=== PATIENT | male | born 1940 | race Caucasian/White ===

== ENCOUNTER → 2020-04-06 09:38 | Outpatient (BNVA) | payer MEDICARE, SELFPAY | PROVIDERS: Family Provider Physician Assistant Medical; PCP Physician Assistant Medical; Visit Provider Urology | DX: R97.20 Elevated prostate specific antigen [PSA] (principal) | CPT/HCPCS: 84153 ==

== ENCOUNTER → 2020-04-14 09:20 | Outpatient (BNVA) | payer MEDICARE, SELFPAY | PROVIDERS: Family Provider Physician Assistant Medical; PCP Physician Assistant Medical; Visit Provider Urology | DX: R97.20 Elevated prostate specific antigen [PSA] (principal) | CPT/HCPCS: 81001 ==

== ENCOUNTER → 2020-09-21 14:05 | Outpatient (BNVA) | payer MEDICARE, SELFPAY | PROVIDERS: Family Provider Physician Assistant Medical; PCP Physician Assistant Medical; Visit Provider Urology | DX: R97.20 Elevated prostate specific antigen [PSA] (principal) | CPT/HCPCS: 81003 ==

== ENCOUNTER → 2021-03-15 11:26 | Outpatient (BNVA) | payer MEDICARE, SELFPAY | PROVIDERS: Family Provider Physician Assistant Medical; PCP Physician Assistant Medical; Visit Provider Urology | DX: R97.20 Elevated prostate specific antigen [PSA] (principal) | CPT/HCPCS: 84153 ==

== ENCOUNTER → 2021-03-24 09:27 | Outpatient (BNVA) | payer MEDICARE, SELFPAY | PROVIDERS: Family Provider Physician Assistant Medical; PCP Physician Assistant Medical; Visit Provider Urology | DX: R97.20 Elevated prostate specific antigen [PSA] (principal) | CPT/HCPCS: 81003 ==

== ENCOUNTER 2021-09-19 08:29 | Outpatient (CLI) | payer MEDICARE, SELFPAY | END 2021-09-19 08:30 | disposition home or self-care (01) | LOC: LAB 08:34 | PROVIDERS: PCP Family Medicine; Visit Provider Urology | DX: R97.20 Elevated prostate specific antigen [PSA] (principal) | CPT/HCPCS: 84153 ==

== ENCOUNTER → 2021-09-26 09:02 | Outpatient (BNVA) | payer MEDICARE, SELFPAY | PROVIDERS: PCP Family Medicine; Visit Provider Urology | DX: R97.20 Elevated prostate specific antigen [PSA] (principal) | CPT/HCPCS: 81003 ==

== ENCOUNTER 2021-12-12 09:12 | Outpatient (CLI) | payer MEDICARE, SELFPAY ==
--- NOTE | 2021-12-12 09:30 | USCV_ITS ---
Dm Ny Age: 81 Gender: M : 1940 Exam Date: 12/12/2021 09:37 Ordering Phys: Steffen Alcantar MD (Andy) ([email or web address]) Technologist: José Miguel Huffman Exam Location: [facility] [place] Indication: SCREENING HISTORY: Diameter (cm) AP x Transverse x Length Velocity (cm/s) Waveform Prox Aorta: 1.75 x 2.03 x 76.30 Mid Aorta: 1.14 x 1.47 x 72.00 Distal Aorta: 1.21 x 1.31 x 78.40 Right Iliac Prox: 0.68 x 0.88 x 100.00 Left Iliac Prox: 0.70 x 0.73 x 162.20 Stent Prox Landing x x Aneurysmal Sac Max x x Lt Lat Sac Dim Rt Lat Sac Dim Stent Dist Landing x x Right Iliac Stent x x Left Iliac Stent x x Right Renal Art Left Renal Art FINDINGS: Comparison: none available. No evidence of abdominal aortic aneurysm. Ectatic abdominal aorta with evidence of atherosclerotic plaque noted. There is evidence of atherosclerotic plaque no significan stenosis in the right common iliac artery. There is evidence of atherosclerotic plaque no significan stenosis in the left common iliac artery. CONCLUSIONS Ectatic abdominal aorta with evidence of atherosclerotic plaque noted. No evidence of abdominal aortic aneurysm. Dr. Inna David DO (Electronically Signed) Final Date: 12 December 2021 11:36 S
== END 2021-12-12 09:13 | disposition home or self-care (01) ==
PROVIDERS: PCP Family Medicine; Visit Provider Thoracic Surgery (Cardiothoracic Vascular Surgery)
DX: Z13.6 Encounter for screening for cardiovascular disorders (principal); I77.811 Abdominal aortic ectasia
CPT/HCPCS: 76706

== ENCOUNTER → 2022-01-06 09:35 | Outpatient (BNVA) | payer MEDICARE, SELFPAY | PROVIDERS: PCP Family Medicine; Visit Provider Thoracic Surgery (Cardiothoracic Vascular Surgery) | DX: I73.9 Peripheral vascular disease, unspecified (principal) | CPT/HCPCS: 99212 ==

== ENCOUNTER → 2022-03-30 09:08 | Outpatient (BNVA) | payer MEDICARE, SELFPAY | PROVIDERS: PCP Family Medicine; Visit Provider Urology | DX: R97.20 Elevated prostate specific antigen [PSA] (principal) | CPT/HCPCS: 81003; 99213 ==

== ENCOUNTER → 2022-09-29 08:48 | Outpatient (BNVA) | payer MEDICARE, SELFPAY | PROVIDERS: PCP Family Medicine; Visit Provider Urology | DX: R97.20 Elevated prostate specific antigen [PSA] (principal) | CPT/HCPCS: 84153 ==

== ENCOUNTER → 2022-10-12 10:30 | Outpatient (BNVA) | payer MEDICARE, SELFPAY | PROVIDERS: PCP Family Medicine; Visit Provider Urology | DX: R97.20 Elevated prostate specific antigen [PSA] (principal) | CPT/HCPCS: 81003; 99213 ==

== ENCOUNTER → 2022-12-28 14:11 | Outpatient (BNVA) | payer MEDICARE, SELFPAY | PROVIDERS: PCP Family Medicine; Visit Provider Surgery | DX: R22.42 Localized swelling, mass and lump, left lower limb (principal); R19.09 Other intra-abdominal and pelvic swelling, mass and lump | CPT/HCPCS: 99203 ==

== ENCOUNTER 2023-01-26 08:53 | Outpatient (CLI) | payer MEDICARE, SELFPAY ==
--- NOTE | 2023-01-26 10:15 | US_ITS ---
WS: [id number] ULTRASOUND-GUIDED LEFT INGUINAL MASS BIOPSY INDICATION: LEFT inguinal mass TECHNIQUE: The procedure including risks, benefits, and complications were discussed with the patient who agreed to proceed. Using sterile technique, patient was prepped and draped in usual sterile [facility] ion. Timeout was performed. After 1% lidocaine, using ultrasound guidance, multiple core samples were obtained with a 14-gauge biopsy device. In addition approximately 10 cc of bloody fluid was aspirate d. No immediate complications. US/US biopsy [id number] IMPRESSION: Uncomplicated ultrasound-guided LEFT inguinal mass biopsy
[2023-01-30 07:54] LABS: Lymphoma Profile (BBPL) See Report
== END 2023-01-26 08:54 | disposition home or self-care (01) ==
LOC: RAD 08:57
PROVIDERS: PCP Family Medicine; Visit Provider Surgery
DX: R19.09 Other intra-abdominal and pelvic swelling, mass and lump (principal); C96.9 Malignant neoplasm of lymphoid, hematopoietic and related tissue, unspecified
CPT/HCPCS: 76942; 88112; 88184; 88185; 88305; 88342

== ENCOUNTER → 2023-02-06 13:55 | Outpatient (BNVA) | payer MEDICARE, SELFPAY | PROVIDERS: PCP Family Medicine; Visit Provider Surgery | DX: R22.42 Localized swelling, mass and lump, left lower limb (principal); C43.9 Malignant melanoma of skin, unspecified; K40.90 Unilateral inguinal hernia, without obstruction or gangrene, not specified as recurrent | CPT/HCPCS: 99213 ==

== ENCOUNTER 2023-02-14 10:03 | Oncology outpatient (recurring) (ONCR) | payer MEDICARE, SELFPAY ==
[2023-02-14 11:54] LABS: Basophils % 0.5 %; Eosinophils # 0.2 10^3/uL (0.0-0.8); Eosinophils % 2.7 %; Hematocrit 44.1 % (42.0-52.0); Hemoglobin 14.4 g/dL (11.7-16.6); Lymphocytes # 0.9 10^3/uL (0.8-4.8); Lymphocytes % 10.9 %; Mean Corpuscular HGB Conc 32.7 g/dL (30.0-36.0); Mean Corpuscular Hemoglobin 29.8 pg (28.0-34.0); Mean Corpuscular Volume 91.1 fl (80-94); Mean Platelet Volume 9.5 fL (7.4-10.4); Monocytes # 0.5 10^3/uL (0.2-0.9); Monocytes % 6.7 %; Neutrophils # 6.26 10^3/uL (1.8-7.7); Neutrophils % 78.9 %; Nucleated Red Blood Cells % 0 %; Platelet Count 188 10^3/cmm (130-400); Red Blood Count 4.84 10^6/uL (4.1-5.3); Red Cell Distribution Width 12.2 % (12.1-15.1); White Blood Count 7.9 10^3/uL (4.0-10.0)
[2023-02-14 12:15] LABS: Alanine Aminotransferase 19 U/L (0-41); Albumin Level 4.3 g/dL (3.5-5.2); Alkaline Phosphatase 100 U/L (40-130); Aspartate Amino Transferase 29 U/L (0-40); Blood Urea Nitrogen 13 mg/dL (8-23); Calcium 9.3 mg/dL (8.5-10.5); Carbon Dioxide 22 mmol/L (22-29); Chloride 103 mmol/L (98-107); Globulin 2.7 g/dL (1.3-4.6); Glucose 84 mg/dL (65-115); Osmolality Calculated 287 mOsm/kg (285-295); Sodium 139 mmol/L (136-145); Total Bilirubin 0.6 mg/dL (0.15-1.2)
[2023-02-14 12:19] LABS: Lactate Dehydrogenase 302 U/L (135-225)
== END 2023-02-18 23:59 | disposition home or self-care (01) ==
PROVIDERS: PCP Family Medicine; Visit Provider Internal Medicine Medical Oncology
DX: C77.4 Secondary and unspecified malignant neoplasm of inguinal and lower limb lymph nodes (principal); C80.1 Malignant (primary) neoplasm, unspecified; Z87.891 Personal history of nicotine dependence
CPT/HCPCS: 36415; 80053; 83615; 85025; 99205

== ENCOUNTER → 2023-02-14 12:53 | Outpatient (BNVA) | payer MEDICARE, SELFPAY | PROVIDERS: PCP Family Medicine; Referring Provider Registered Nurse; Visit Provider Dermatology | DX: L08.89 Other specified local infections of the skin and subcutaneous tissue (principal); D04.5 Carcinoma in situ of skin of trunk; C79.89 Secondary malignant neoplasm of other specified sites; R59.0 Localized enlarged lymph nodes; D22.39 Melanocytic nevi of other parts of face; L81.4 Other melanin hyperpigmentation; L57.8 Other skin changes due to chronic exposure to nonionizing radiation | CPT/HCPCS: 11102; 11103; 99204 ==

== ENCOUNTER 2023-02-24 05:54 | Outpatient (CLI) | payer MEDICARE, SELFPAY ==
--- NOTE | 2023-02-24 | PETR_ITS ---
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 Then, PET images were obtained. Attenuation corrected images were constructed using the CT scan. Fused images of PET and CT were reviewed. The standardized uptake values (SUV) reported below are maximum values within a region of interest, expressed in gm/ml. Exam includes vertex to ankles Radiopharmaceutical: 13.05 mCi F-18 FDG (Fluorodeoxyglucose), IV. Time of imaging post radiopharmaceutical administration: 64.0 minutes. Injection site: Right hand. COMPARISON: pelvic limited [id number] 12/05/2022 9:00 AM FINDINGS: Brain: Visualized brain has normal physiologic uptake. Pharynx: No abnormal uptake. Larynx: No abnormal uptake. Lungs, pleura and trachea: A hypermetabolic pulmonary mass is consistent with a metastasis. It is in the posterior basal segment of the left lower lobe. It is 5.5 x 4.8 x 5.1 cm. Its SUVmax is 16.1. The right lung is clear. Heart: Normal physiologic uptake. Heart size is normal. Mediastinal space: See lymph node section below. Liver: 4 hypermetabolic lesions in the liver are consistent with metastases. A 1.2 cm lesion in hepatic segment 8 has an SUV max of 6.5 (image 88). A 1.7 cm lesion in hepatic segment 7 has an SUV max of 9.1 (image 93). A 0.9 cm lesion in hepatic segment 7 has an SUV max of 4.0 (image 101). A 1.6 cm lesion in hepatic segment 6 has an SUV max of 9.3 (image 106). Gallbladder and bile ducts: No abnormal uptake. Pancreas: No abnormal uptake. Spleen: No abnormal uptake. Adrenal glands: No abnormal uptake. Kidneys and ureters: Normal physiologic uptake. Stomach and bowel: No abnormal uptake. Vasculature: No abnormal uptake. Lymph nodes: Numerous FDG avid lymph node metastases. For example: A right supraclavicular metastasis is 1.3 cm and has an SUV max of 11.2 (image 57). A right upper paratracheal metastasis is 3.4 x 1.2 cm and has an SUV max of 14.0. A subcarinal lymph node metastasis is 1.8 x 1.5 cm and has an SUV max of 11.7. Two left para-aortic retroperitoneal lymphadenopathy has short axis diameters of 0.8 and 0.7 cm and SUVs max of 4.0 and 3.8 (images 119 and 128). Malignant left inguinal lymphadenopathy is 7.1 x 4.2 x 5.3 cm. Its SUVmax is 26.2. Reproductive: The prostate appears appropriate for 82 years of age. Bones/joints: A lytic skeletal metastasis in the left side of the L5 vertebral body is 1.4 x 1.6 x 1.1 cm (transverse x ant-post x craniocaudal). Its SUVmax is 7.0. A lytic skeletal metastasis in the posteromedial left iliac wing is 0.7 x 0.3 cm. Its SUVmax is 5.3 (image 148). Soft tissues: Mild extravasation of FDG at the right hand injection site. PET/PET [facility] INITIAL [id number] IMPRESSION: 1. Numerous lymph node metastases to the mediastinum, retroperitoneum and left inguinal region. 2. One pulmonary metastasis to the left lower lobe. 3. Two skeletal metastases to the L5 vertebral body and left ilium. 4. Four hepatic metastases in the right lobe.
== END 2023-02-24 05:55 | disposition home or self-care (01) ==
PROVIDERS: PCP Family Medicine; Visit Provider Registered Nurse
DX: C76.3 Malignant neoplasm of pelvis (principal); C43.9 Malignant melanoma of skin, unspecified; C77.9 Secondary and unspecified malignant neoplasm of lymph node, unspecified
CPT/HCPCS: 78815; A9552

== ENCOUNTER → 2023-02-26 07:57 | Outpatient (BNVA) | payer MEDICARE, SELFPAY | PROVIDERS: PCP Family Medicine; Visit Provider Dermatology | DX: L90.5 Scar conditions and fibrosis of skin (principal); D04.5 Carcinoma in situ of skin of trunk; C79.89 Secondary malignant neoplasm of other specified sites; R59.0 Localized enlarged lymph nodes | CPT/HCPCS: 11102; 99214 ==

== ENCOUNTER → 2023-03-20 08:01 | Outpatient (BNVA) | payer MEDICARE, SELFPAY | PROVIDERS: PCP Family Medicine; Visit Provider Urology | DX: R97.20 Elevated prostate specific antigen [PSA] (principal); C77.5 Secondary and unspecified malignant neoplasm of intrapelvic lymph nodes; C43.9 Malignant melanoma of skin, unspecified | CPT/HCPCS: 51798; 81003; 99213 ==

== ENCOUNTER 2023-03-27 08:06 | Outpatient (CLI) | payer MEDICARE, SELFPAY ==
--- NOTE | 2023-03-27 08:45 | MR_ITS ---
WS: [id number] MRI BRAIN WITH AND WITHOUT CONTRAST HISTORY: staging, malignant melanoma. COMPARISON: None available. TECHNIQUE: Multiplanar imaging performed through the brain with MultiHance 14 ml's IV. No acute infarcts are seen. Perry-white matter differentiation is well preserved. There are a few very tiny diffusion-weighted abnormalities with no corresponding ADC map changes. There is a tiny focus i n the posterior RIGHT parietal occipital junction and an additional tiny focus in the LEFT cerebellum . There is no enhancement. There is a very small amount of increased T2 signal on the FLAIR sequences in these locations. No prior hemorrhage. Mild small vessel ischemic changes. No prior large territory infarct. Mild ische julien in the RIGHT fanny. Ventricles and extra-axial spaces are normal. Clivus and pituitary gland are normal. Postcontrast images are negative for masses or vascular malformations. Dural venous sinuses are normal. Paranasal sinuses: Well aerated with no significant disease. Mastoid air cells: Normal. Calvarium and scalp: Normal. MR/MR head wo/w con [id number] IMPRESSION: 1. No enhancing lesions within the brain to suggest metastatic disease. 2. There are 2 very small diffusion-weighted abnormalities without a correspon ding ADC map finding, RIGHT parieto-occipital junction and LEFT cerebellum. The se areas do not enhance. To exclude very early metastatic disease recommend fol low-up MRI in 6-8 weeks with contrast. 3. Mild small vessel ischemic disease.
[2023-03-27] MEDS: gadobenate dimeglumine 20 mL vial IV (09:39)
== END 2023-03-27 08:07 | disposition home or self-care (01) ==
PROVIDERS: PCP Family Medicine; Visit Provider Internal Medicine Medical Oncology
DX: C43.9 Malignant melanoma of skin, unspecified (principal); R90.89 Other abnormal findings on diagnostic imaging of central nervous system; I67.82 Cerebral ischemia
CPT/HCPCS: 70553; A9577

== ENCOUNTER 2023-04-12 12:15 | Oncology outpatient (recurring) (ONCR) | payer MEDICARE, SELFPAY ==
[2023-04-12 11:39] VITALS: BP 153/68; PULSE 75; RESP 18; TEMP 36.7; O2SAT 97
[2023-04-12 11:58] LABS: Basophils % 0.5 %; Eosinophils # 0.2 10^3/uL (0.0-0.8); Eosinophils % 2.6 %; Hematocrit 41.1 % (42.0-52.0); Lymphocytes # 0.9 10^3/uL (0.8-4.8); Lymphocytes % 10.3 %; Mean Corpuscular HGB Conc 34.1 g/dL (30.0-36.0); Mean Corpuscular Hemoglobin 30.1 pg (28.0-34.0); Mean Corpuscular Volume 88.4 fl (80-94); Mean Platelet Volume 9.5 fL (7.4-10.4); Monocytes # 0.7 10^3/uL (0.2-0.9); Monocytes % 8.4 %; Neutrophils # 6.54 10^3/uL (1.8-7.7); Neutrophils % 77.7 %; Nucleated Red Blood Cells % 0 %; Platelet Count 174 10^3/cmm (130-400); Red Blood Count 4.65 10^6/uL (4.1-5.3); Red Cell Distribution Width 12.5 % (12.1-15.1); White Blood Count 8.4 10^3/uL (4.0-10.0)
[2023-04-12 12:21] LABS: Alanine Aminotransferase 12 U/L (0-41); Albumin Level 4.4 g/dL (3.5-5.2); Alkaline Phosphatase 130 U/L (40-130); Anion Gap 17.3 (5-19); Aspartate Amino Transferase 26 U/L (0-40); Blood Urea Nitrogen 16 mg/dL (8-23); Calcium 9.5 mg/dL (8.5-10.5); Carbon Dioxide 24 mmol/L (22-29); Chloride 101 mmol/L (98-107); Globulin 3.1 g/dL (1.3-4.6); Glucose 111 mg/dL (65-115); Immunoglobulin IGG 1069 mg/dL (700-1600); Osmolality Calculated 288 mOsm/kg (285-295); Potassium 4.3 mmol/L (3.5-5.1); Sodium 138 mmol/L (136-145); Thyroid Stimulating Hormone 1.16 uIU/mL (0.27-4.20); Total Bilirubin 0.4 mg/dL (0.15-1.2); Total Protein 7.5 g/dL (6.6-8.7)
[2023-04-12 12:25] LABS: Lactate Dehydrogenase 318 U/L (135-225)
[2023-04-12 12:37] LABS: Hepatitis A Antibody IgM Non-Reactive (Nonreactive); Hepatitis B Core AB, Total Non-Reactive (Nonreactive); Hepatitis B Surface AB 3.5 (11.5-1000); Hepatitis B Surface Antigen Non-Reactive (Nonreactive); Hepatitis C Virus Antibody Non-Reactive (Nonreactive)
[2023-04-12] MEDS: sodium chloride 0.9% 250 ML 50 ML IV (15:36)
[2023-04-12] MEDS: nivo-relat 12mg-4mg/mL 40 ML in sodium chloride 0.9% 250 ML 580 ML IV (16:02)
[2023-04-12 17:00] VITALS: BP 139/78; PULSE 66; RESP 18; TEMP 36.4; O2SAT 96
== END 2023-04-12 23:59 | disposition home or self-care (01) ==
PROVIDERS: Nurse Practitioner Family; PCP Family Medicine; Visit Provider Internal Medicine Medical Oncology
DX: C43.9 Malignant melanoma of skin, unspecified (principal); C77.4 Secondary and unspecified malignant neoplasm of inguinal and lower limb lymph nodes; Z79.899 Other long term (current) drug therapy; Z51.12 Encounter for antineoplastic immunotherapy
CPT/HCPCS: 96413 ×2; 80053; 82784; 83615; 84443; 85025; 86705; 86706; 86709; 86803; 87340; 99214; 99215; J7050; J9298

== ENCOUNTER 2023-04-19 09:45 | Oncology outpatient (recurring) (ONCR) | payer MEDICARE, SELFPAY ==
[2023-04-19 09:49] VITALS: BP 126/75; PULSE 73; RESP 18; TEMP 36.7; O2SAT 96
[2023-04-19 10:16] LABS: Basophils % 0.5 %; Eosinophils # 0.3 10^3/uL (0.0-0.8); Eosinophils % 3.1 %; Hemoglobin 13.6 g/dL (11.7-16.6); Lymphocytes # 0.9 10^3/uL (0.8-4.8); Mean Corpuscular HGB Conc 33.2 g/dL (30.0-36.0); Mean Corpuscular Hemoglobin 28.9 pg (28.0-34.0); Mean Corpuscular Volume 87.2 fl (80-94); Mean Platelet Volume 9.4 fL (7.4-10.4); Monocytes # 0.9 10^3/uL (0.2-0.9); Monocytes % 10.7 %; Neutrophils # 6.43 10^3/uL (1.8-7.7); Neutrophils % 75.3 %; Nucleated Red Blood Cells % 0 %; Platelet Count 184 10^3/cmm (130-400); Red Cell Distribution Width 12.3 % (12.1-15.1); White Blood Count 8.5 10^3/uL (4.0-10.0)
[2023-04-19 10:22] LABS: Alanine Aminotransferase 17 U/L (0-41); Albumin Level 4.4 g/dL (3.5-5.2); Alkaline Phosphatase 157 U/L (40-130); Anion Gap 15.4 (5-19); Aspartate Amino Transferase 24 U/L (0-40); Blood Urea Nitrogen 16 mg/dL (8-23); Carbon Dioxide 24 mmol/L (22-29); Chloride 103 mmol/L (98-107); Glucose 89 mg/dL (65-115); Osmolality Calculated 287 mOsm/kg (285-295); Potassium 4.4 mmol/L (3.5-5.1); Sodium 138 mmol/L (136-145); Total Bilirubin 0.5 mg/dL (0.15-1.2); Total Protein 7.4 g/dL (6.6-8.7)
== END 2023-04-20 23:59 | disposition home or self-care (01) ==
PROVIDERS: Nurse Practitioner Family; PCP Family Medicine; Visit Provider Internal Medicine Medical Oncology
DX: C43.59 Malignant melanoma of other part of trunk (principal); C77.8 Secondary and unspecified malignant neoplasm of lymph nodes of multiple regions; C78.01 Secondary malignant neoplasm of right lung; C78.7 Secondary malignant neoplasm of liver and intrahepatic bile duct; C79.51 Secondary malignant neoplasm of bone; R63.4 Abnormal weight loss; C79.31 Secondary malignant neoplasm of brain; Z68.26 Body mass index [BMI] 26.0-26.9, adult; F41.9 Anxiety disorder, unspecified; Z79.899 Other long term (current) drug therapy
CPT/HCPCS: 36415; 80053; 85025; 99213

== ENCOUNTER 2023-05-10 12:15 | Oncology outpatient (recurring) (ONCR) | payer MEDICARE, SELFPAY ==
[2023-04-26 09:39] VITALS: BP 126/79; PULSE 76; RESP 18; TEMP 36.8; O2SAT 97
[2023-04-26 09:50] LABS: Basophils # 0.1 10^3/uL (0.0-0.1); Basophils % 0.6 %; Eosinophils # 0.2 10^3/uL (0.0-0.8); Eosinophils % 2.1 %; Hematocrit 39.9 % (42.0-52.0); Hemoglobin 13.3 g/dL (11.7-16.6); Lymphocytes # 0.9 10^3/uL (0.8-4.8); Mean Corpuscular HGB Conc 33.3 g/dL (30.0-36.0); Mean Corpuscular Hemoglobin 29.3 pg (28.0-34.0); Mean Corpuscular Volume 87.9 fl (80-94); Mean Platelet Volume 9.2 fL (7.4-10.4); Monocytes # 0.8 10^3/uL (0.2-0.9); Monocytes % 9.8 %; Neutrophils # 6.38 10^3/uL (1.8-7.7); Neutrophils % 75.8 %; Nucleated Red Blood Cells % 0 %; Platelet Count 193 10^3/cmm (130-400); Red Blood Count 4.54 10^6/uL (4.1-5.3); Red Cell Distribution Width 12.1 % (12.1-15.1); White Blood Count 8.4 10^3/uL (4.0-10.0)
[2023-04-26 10:08] LABS: Alanine Aminotransferase 17 U/L (0-41); Albumin Level 4.2 g/dL (3.5-5.2); Alkaline Phosphatase 165 U/L (40-130); Anion Gap 15.2 (5-19); Aspartate Amino Transferase 31 U/L (0-40); Blood Urea Nitrogen 19 mg/dL (8-23); Calcium 9.4 mg/dL (8.5-10.5); Carbon Dioxide 27 mmol/L (22-29); Chloride 100 mmol/L (98-107); Globulin 3.1 g/dL (1.3-4.6); Glucose 86 mg/dL (65-115); Osmolality Calculated 288 mOsm/kg (285-295); Potassium 4.2 mmol/L (3.5-5.1); Sodium 138 mmol/L (136-145); Total Bilirubin 0.6 mg/dL (0.15-1.2); Total Protein 7.3 g/dL (6.6-8.7)
[2023-05-10 11:30] VITALS: BP 138/75; PULSE 66; RESP 18; TEMP 36.6; O2SAT 99; BMI 25.8
[2023-05-10 11:42] LABS: Basophils # 0.1 10^3/uL (0.0-0.1); Basophils % 0.7 %; Eosinophils # 0.3 10^3/uL (0.0-0.8); Eosinophils % 3.7 %; Hematocrit 40.9 % (42.0-52.0); Hemoglobin 13.5 g/dL (11.7-16.6); Lymphocytes # 1.2 10^3/uL (0.8-4.8); Lymphocytes % 15.9 %; Mean Corpuscular Hemoglobin 29.4 pg (28.0-34.0); Mean Corpuscular Volume 89.1 fl (80-94); Mean Platelet Volume 9.2 fL (7.4-10.4); Monocytes # 0.6 10^3/uL (0.2-0.9); Monocytes % 7.7 %; Neutrophils # 5.19 10^3/uL (1.8-7.7); Neutrophils % 71.6 %; Nucleated Red Blood Cells % 0 %; Platelet Count 226 10^3/cmm (130-400); Red Blood Count 4.59 10^6/uL (4.1-5.3); Red Cell Distribution Width 12.8 % (12.1-15.1); White Blood Count 7.3 10^3/uL (4.0-10.0)
[2023-05-10 12:09] LABS: Alanine Aminotransferase 20 U/L (0-41); Albumin Level 4.5 g/dL (3.5-5.2); Alkaline Phosphatase 132 U/L (40-130); Anion Gap 13.5 (5-19); Aspartate Amino Transferase 25 U/L (0-40); Blood Urea Nitrogen 15 mg/dL (8-23); Calcium 9.1 mg/dL (8.5-10.5); Carbon Dioxide 28 mmol/L (22-29); Chloride 102 mmol/L (98-107); Globulin 2.8 g/dL (1.3-4.6); Glucose 81 mg/dL (65-115); Lactate Dehydrogenase 234 U/L (135-225); Osmolality Calculated 288 mOsm/kg (285-295); Potassium 4.5 mmol/L (3.5-5.1); Sodium 139 mmol/L (136-145); Thyroid Stimulating Hormone 1.17 uIU/mL (0.27-4.20); Total Bilirubin 0.6 mg/dL (0.15-1.2); Total Protein 7.3 g/dL (6.6-8.7)
[2023-05-10] MEDS: sodium chloride 0.9% 250 ML 75 ML IV (14:01)
[2023-05-10] MEDS: nivo-relat 12mg-4mg/mL 40 ML in sodium chloride 0.9% 250 ML 580 ML IV (14:24)
[2023-05-10 15:12] VITALS: BP 136/75; PULSE 64; RESP 18; TEMP 36.2; O2SAT 96
== END 2023-05-10 23:59 | disposition home or self-care (01) ==
PROVIDERS: Nurse Practitioner Family; PCP Family Medicine; Visit Provider Internal Medicine Medical Oncology
DX: C43.9 Malignant melanoma of skin, unspecified; C77.5 Secondary and unspecified malignant neoplasm of intrapelvic lymph nodes; Z51.12 Encounter for antineoplastic immunotherapy
CPT/HCPCS: 36415; 80053; 83615; 84443; 85025; 96413; 99214; J7050; J9298

== ENCOUNTER → 2023-05-23 08:54 | Outpatient (BNVA) | payer MEDICARE, SELFPAY | PROVIDERS: PCP Family Medicine; Visit Provider Nurse Practitioner Family | DX: L57.0 Actinic keratosis (principal); D04.5 Carcinoma in situ of skin of trunk; C79.89 Secondary malignant neoplasm of other specified sites; R59.0 Localized enlarged lymph nodes; Z48.817 Encounter for surgical aftercare following surgery on the skin and subcutaneous tissue | CPT/HCPCS: 17004; 99214 ==

== ENCOUNTER 2023-06-07 12:36 | Oncology outpatient (recurring) (ONCR) | payer MEDICARE, SELFPAY ==
[2023-06-07] MEDS: nivo-relat 12mg-4mg/mL 40 ML in sodium chloride 0.9% 250 ML 580 ML IV (13:32)
[2023-06-07 14:28] VITALS: BP 109/62; PULSE 67; TEMP 36.6; O2SAT 99
== END 2023-06-07 23:59 | disposition home or self-care (01) ==
PROVIDERS: PCP Family Medicine; Visit Provider Internal Medicine Medical Oncology
DX: C43.9 Malignant melanoma of skin, unspecified; Z79.899 Other long term (current) drug therapy; C77.5 Secondary and unspecified malignant neoplasm of intrapelvic lymph nodes; Z51.12 Encounter for antineoplastic immunotherapy
CPT/HCPCS: 96413; J7050; J9298

== ENCOUNTER 2023-06-13 07:39 | Outpatient (CLI) | payer MEDICARE, SELFPAY ==
--- NOTE | 2023-06-13 08:00 | MR_ITS ---
WS: [id number] MRI BRAIN WITH AND WITHOUT CONTRAST HISTORY: follow up per last MRI, history melanoma per COMPARISON: 03/27/2023 TECHNIQUE: Multiplanar imaging performed through the brain with MultiHance 15 ml's IV. No acute infarcts are seen. Perry-white matter differentiation is well preserved. Previously described diffusion weighted abnormalities are no longer evident. Mild symmetric atrophy and small vessel ischemic disease. No edema or sulcal effacement. Mild small v essel ischemic disease in the fanny. Ventricles and extra-axial spaces are normal. Clivus and pituitary gland are normal. Visualized posterior fossa and brainstem are also normal. Postcontrast images are negative for masses or vascular malformations. Dural venous sinuses are normal. Paranasal sinuses: Well aerated with no significant disease. Mastoid air cells: Normal. Calvarium and scalp: Normal. IMPRESSION: 1. Interval resolution of the previously described very tiny diffusion abnormalities from 03/27/2023. 2. No enhancing masses or evidence for metastatic disease. 3. Mild atrophy and small vessel ischemic disease. Mild small vessel disease in the fanny.
== END 2023-06-13 07:40 | disposition home or self-care (01) ==
PROVIDERS: PCP Family Medicine; Visit Provider Internal Medicine Medical Oncology
DX: C43.9 Malignant melanoma of skin, unspecified (principal); I67.89 Other cerebrovascular disease
CPT/HCPCS: 70553; A9577

== ENCOUNTER 2023-07-05 08:39 | Oncology outpatient (recurring) (ONCR) | payer MEDICARE, SELFPAY ==
[2023-07-05 09:40] VITALS: BP 127/75; PULSE 71; RESP 16; TEMP 36.7; O2SAT 96
[2023-07-05 09:45] LABS: Basophils % 0.7 %; Eosinophils # 0.2 10^3/uL (0.0-0.8); Eosinophils % 3.3 %; Hematocrit 42.4 % (37-53); Lymphocytes # 0.9 10^3/uL (0.8-4.8); Lymphocytes % 14.7 %; Mean Corpuscular HGB Conc 33.7 g/dL (30-55); Mean Corpuscular Hemoglobin 30.2 pg (27-33); Mean Corpuscular Volume 89.5 fl (82-101); Mean Platelet Volume 9.4 fL (7.4-10.4); Monocytes # 0.5 10^3/uL (0.2-0.9); Monocytes % 8.4 %; Neutrophils # 4.34 10^3/uL (1.8-7.7); Neutrophils % 72.6 %; Nucleated Red Blood Cells % 0 %; Platelet Count 198 10^3/cmm (157-399); Red Blood Count 4.74 10^6/uL (3.85-5.65); Red Cell Distribution Width 12.5 % (12.1-15.1); White Blood Count 5.98 10^3/uL (3.29-11.43)
[2023-07-05 10:15] LABS: Alanine Aminotransferase 19 U/L (0-41); Albumin Level 4.4 g/dL (3.5-5.2); Alkaline Phosphatase 99 U/L (40-130); Aspartate Amino Transferase 24 U/L (0-40); Blood Urea Nitrogen 19 mg/dL (8-23); Calcium 9.4 mg/dL (8.5-10.5); Carbon Dioxide 29 mmol/L (22-29); Chloride 104 mmol/L (98-107); Globulin 2.6 g/dL (1.3-4.6); Glucose 86 mg/dL (65-115); Osmolality Calculated 294 mOsm/kg (285-295); Sodium 141 mmol/L (136-145); Thyroid Stimulating Hormone 0.91 uIU/mL (0.27-4.20); Total Bilirubin 0.4 mg/dL (0.15-1.2)
[2023-07-05 10:45] LABS: Anion Gap 12.3 (5-19); Lactate Dehydrogenase 205 U/L (135-225); Potassium 4.3 mmol/L (3.5-5.1)
[2023-07-05] MEDS: sodium chloride 0.9% 250 ML 100 ML IV (12:12)
[2023-07-05] MEDS: nivo-relat 12mg-4mg/mL 40 ML in sodium chloride 0.9% 250 ML 580 ML IV (12:13)
[2023-07-05 15:22] VITALS: BP 119/64; PULSE 69; RESP 16; TEMP 36.4; O2SAT 98
== END 2023-07-05 23:59 | disposition home or self-care (01) ==
PROVIDERS: PCP Family Medicine; Visit Provider Internal Medicine Medical Oncology
DX: Z79.899 Other long term (current) drug therapy (principal); C43.9 Malignant melanoma of skin, unspecified; C77.5 Secondary and unspecified malignant neoplasm of intrapelvic lymph nodes; Z51.12 Encounter for antineoplastic immunotherapy
CPT/HCPCS: 80053; 83615; 84443; 85025; 96413; 99214; J7050; J9298

== ENCOUNTER 2023-08-02 10:08 | Oncology outpatient (recurring) (ONCR) | payer MEDICARE, SELFPAY ==
[2023-08-02 10:45] VITALS: BP 138/75; PULSE 62; RESP 16; TEMP 36.9; O2SAT 99; BMI 26.5
[2023-08-02 10:55] LABS: Basophils % 0.6 %; Eosinophils # 0.2 10^3/uL (0.0-0.8); Eosinophils % 3.3 %; Hematocrit 42.7 % (37-53); Lymphocytes # 1.2 10^3/uL (0.8-4.8); Lymphocytes % 17.3 %; Mean Corpuscular HGB Conc 33.5 g/dL (30-55); Mean Corpuscular Hemoglobin 29.9 pg (27-33); Mean Corpuscular Volume 89.3 fl (82-101); Mean Platelet Volume 9.3 fL (7.4-10.4); Monocytes # 0.7 10^3/uL (0.2-0.9); Monocytes % 9.5 %; Neutrophils # 4.88 10^3/uL (1.8-7.7); Neutrophils % 68.9 %; Nucleated Red Blood Cells % 0 %; Platelet Count 203 10^3/cmm (157-399); Red Blood Count 4.78 10^6/uL (3.85-5.65); Red Cell Distribution Width 12.6 % (12.1-15.1); White Blood Count 7.07 10^3/uL (3.29-11.43)
[2023-08-02 11:23] LABS: Alanine Aminotransferase 24 U/L (0-41); Albumin Level 4.4 g/dL (3.5-5.2); Alkaline Phosphatase 96 U/L (40-130); Anion Gap 12.2 (5-19); Aspartate Amino Transferase 30 U/L (0-40); Blood Urea Nitrogen 17 mg/dL (8-23); Calcium 9.5 mg/dL (8.5-10.5); Carbon Dioxide 29 mmol/L (22-29); Chloride 104 mmol/L (98-107); Globulin 2.8 g/dL (1.3-4.6); Glucose 69 mg/dL (65-115); Osmolality Calculated 292 mOsm/kg (285-295); Potassium 4.2 mmol/L (3.5-5.1); Sodium 141 mmol/L (136-145); Thyroid Stimulating Hormone 1.03 uIU/mL (0.27-4.20); Total Bilirubin 0.5 mg/dL (0.15-1.2); Total Protein 7.2 g/dL (6.6-8.7)
[2023-08-02] MEDS: nivo-relat 12mg-4mg/mL 40 ML in sodium chloride 0.9% 250 ML 580 ML IV (12:44)
[2023-08-02 13:30] VITALS: BP 149/69; PULSE 56; RESP 17; TEMP 36.7; O2SAT 98
== END 2023-08-02 23:59 | disposition home or self-care (01) ==
PROVIDERS: Nurse Practitioner Family; PCP Family Medicine; Visit Provider Internal Medicine Medical Oncology
DX: C43.9 Malignant melanoma of skin, unspecified; Z51.12 Encounter for antineoplastic immunotherapy
CPT/HCPCS: 80053; 84443; 85025; 96413; J7050; J9298

== ENCOUNTER 2023-08-30 09:12 | Oncology outpatient (recurring) (ONCR) | payer MEDICARE, SELFPAY ==
[2023-08-30 09:38] VITALS: BMI 26.5
[2023-08-30 09:42] VITALS: BP 122/63; PULSE 77; RESP 17; TEMP 36.8; O2SAT 98
[2023-08-30 10:04] LABS: Basophils % 0.7 %; Eosinophils # 0.2 10^3/uL (0.0-0.8); Eosinophils % 3.6 %; Hematocrit 42.7 % (37-53); Lymphocytes # 0.9 10^3/uL (0.8-4.8); Lymphocytes % 16.3 %; Mean Corpuscular HGB Conc 33.5 g/dL (30-55); Mean Corpuscular Hemoglobin 30.2 pg (27-33); Mean Corpuscular Volume 90.1 fl (82-101); Mean Platelet Volume 9.4 fL (7.4-10.4); Monocytes # 0.6 10^3/uL (0.2-0.9); Monocytes % 9.9 %; Neutrophils # 3.97 10^3/uL (1.8-7.7); Nucleated Red Blood Cells % 0 %; Platelet Count 195 10^3/cmm (157-399); Red Blood Count 4.74 10^6/uL (3.85-5.65); Red Cell Distribution Width 12.3 % (12.1-15.1); White Blood Count 5.76 10^3/uL (3.29-11.43)
[2023-08-30 10:30] LABS: Alanine Aminotransferase 21 U/L (0-41); Albumin Level 4.2 g/dL (3.5-5.2); Alkaline Phosphatase 85 U/L (40-130); Anion Gap 13.9 (5-19); Aspartate Amino Transferase 23 U/L (0-40); Blood Urea Nitrogen 17 mg/dL (8-23); Calcium 9.4 mg/dL (8.5-10.5); Carbon Dioxide 28 mmol/L (22-29); Chloride 103 mmol/L (98-107); Globulin 2.5 g/dL (1.3-4.6); Glucose 89 mg/dL (65-115); Osmolality Calculated 293 mOsm/kg (285-295); Potassium 3.9 mmol/L (3.5-5.1); Sodium 141 mmol/L (136-145); Thyroid Stimulating Hormone 1.07 uIU/mL (0.27-4.20); Total Bilirubin 0.5 mg/dL (0.15-1.2); Total Protein 6.7 g/dL (6.6-8.7)
[2023-08-30] MEDS: sodium chloride 0.9% 250 ML 75 ML IV (11:45)
[2023-08-30] MEDS: nivo-relat 12mg-4mg/mL 40 ML in sodium chloride 0.9% 250 ML 580 ML IV (12:08)
[2023-08-30 12:54] VITALS: BP 129/71; PULSE 77; RESP 18; TEMP 36.5; O2SAT 98
== END 2023-08-30 23:59 | disposition home or self-care (01) ==
PROVIDERS: PCP Family Medicine; Visit Provider Internal Medicine Medical Oncology
DX: Z79.899 Other long term (current) drug therapy (principal); C43.9 Malignant melanoma of skin, unspecified; C77.5 Secondary and unspecified malignant neoplasm of intrapelvic lymph nodes; Z51.11 Encounter for antineoplastic chemotherapy
CPT/HCPCS: 80053; 84443; 85025; 96413; 99214; J7050; J9298

== ENCOUNTER 2023-09-27 09:01 | Oncology outpatient (recurring) (ONCR) | payer MEDICARE, SELFPAY ==
[2023-09-27 09:50] VITALS: BP 134/78; PULSE 74; RESP 16; TEMP 36.9; O2SAT 97
[2023-09-27 09:56] LABS: Basophils % 0.5 %; Eosinophils # 0.3 10^3/uL (0.0-0.8); Eosinophils % 4.4 %; Hematocrit 42.1 % (37-53); Lymphocytes % 15.8 %; Mean Corpuscular Hemoglobin 30.3 pg (27-33); Mean Corpuscular Volume 89.2 fl (82-101); Mean Platelet Volume 9.2 fL (7.4-10.4); Monocytes # 0.7 10^3/uL (0.2-0.9); Monocytes % 10.6 %; Neutrophils # 4.31 10^3/uL (1.8-7.7); Neutrophils % 68.4 %; Nucleated Red Blood Cells % 0 %; Platelet Count 201 10^3/cmm (157-399); Red Blood Count 4.72 10^6/uL (3.85-5.65); Red Cell Distribution Width 12.2 % (12.1-15.1); White Blood Count 6.31 10^3/uL (3.29-11.43)
[2023-09-27 10:28] LABS: Alanine Aminotransferase 20 U/L (0-41); Albumin Level 4.3 g/dL (3.5-5.2); Alkaline Phosphatase 98 U/L (40-130); Anion Gap 13.2 (5-19); Aspartate Amino Transferase 23 U/L (0-40); Blood Urea Nitrogen 19 mg/dL (8-23); Calcium 9.9 mg/dL (8.5-10.5); Carbon Dioxide 30 mmol/L (22-29); Chloride 101 mmol/L (98-107); Globulin 2.8 g/dL (1.3-4.6); Glucose 93 mg/dL (65-115); Osmolality Calculated 292 mOsm/kg (285-295); Potassium 4.2 mmol/L (3.5-5.1); Sodium 140 mmol/L (136-145); Thyroid Stimulating Hormone 1.14 uIU/mL (0.27-4.20); Total Bilirubin 0.6 mg/dL (0.15-1.2); Total Protein 7.1 g/dL (6.6-8.7)
[2023-09-27] MEDS: nivo-relat 12mg-4mg/mL 40 ML in sodium chloride 0.9% 250 ML 580 ML IV (12:15)
[2023-09-27 13:08] VITALS: BP 129/88; PULSE 79; RESP 16; TEMP 36.6; O2SAT 94
== END 2023-09-27 23:59 | disposition home or self-care (01) ==
PROVIDERS: Nurse Practitioner Family; PCP Family Medicine; Visit Provider Internal Medicine Medical Oncology
DX: C43.9 Malignant melanoma of skin, unspecified; C79.51 Secondary malignant neoplasm of bone; Z79.899 Other long term (current) drug therapy; Z51.11 Encounter for antineoplastic chemotherapy
CPT/HCPCS: 80053; 84443; 85025; 96413; 99215; J7050; J9298

== ENCOUNTER → 2023-10-01 08:06 | Outpatient (BNVA) | payer MEDICARE, SELFPAY | PROVIDERS: PCP Family Medicine; Visit Provider Nurse Practitioner Family | DX: L57.0 Actinic keratosis (principal); D04.5 Carcinoma in situ of skin of trunk; C79.89 Secondary malignant neoplasm of other specified sites; S60.042A Contusion of left ring finger without damage to nail, initial encounter; X58.XXXA Exposure to other specified factors, initial encounter | CPT/HCPCS: 17000; 17261; 99213 ==

== ENCOUNTER 2023-10-18 12:29 | Outpatient (CLI) | payer MEDICARE, SELFPAY ==
--- NOTE | 2023-10-18 13:00 | MR_ITS ---
WS: [id number] MRI HEAD WITH CONTRAST TECHNIQUE: Sagittal T1, T2 axial, T2 axial FLAIR, axial susceptibility weighted imaging, axial diffus ion weighted images, and coronal T2 images were obtained. Pre and post-T1 axial and post T1 coronal i mages. ADC and FSPGR images. CLINICAL INFORMATION: restaging COMPARISON: MRI 06/13/2023 FINDINGS: No evidence of restricted diffusion to suggest acute ischemia. Ventricular system and basal cisterns are patent. Mild small vessel changes. Moderate parenchymal volume loss. Small vessel changes in the fanny. Tiny bilateral lacunar infarcts in the cerebellum. Normal vascular flow voids at the skull base . No extra-axial fluid collections. Paranasal sinuses are well aerated. Mastoid air cells are well ae rated. Normal posterior nasopharynx. No hemosiderin on susceptibility-weighted images . Normal optic chiasm and pituitary infundibulum. Mi ld symmetric atrophy temporal lobes and hippocampal formations. Normal cavernous sinuses and Meckel's cave. No abnormal gadolinium enhancement. No evidence of enhancing intracranial metastatic disease. IMPRESSION: 1. No evidence of restricted diffusion to suggest acute ischemia. 2. Mild small vessel changes with moderate parenchymal volume loss. 3. 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 4. No evidence of enhancing intracranial metastatic disease.
[2023-10-18] MEDS: gadobenate dimeglumine 20 mL vial IV (13:45)
== END 2023-10-18 12:30 | disposition home or self-care (01) ==
LOC: RAD 12:29
PROVIDERS: PCP Family Medicine; Visit Provider Internal Medicine
DX: C43.9 Malignant melanoma of skin, unspecified (principal); C79.51 Secondary malignant neoplasm of bone; Z86.73 Personal history of transient ischemic attack (TIA), and cerebral infarction without residual deficits; I67.89 Other cerebrovascular disease
CPT/HCPCS: 70553; A9577

== ENCOUNTER 2023-10-30 11:02 | Outpatient (CLI) | payer MEDICARE, SELFPAY ==
--- NOTE | 2023-10-30 11:30 | PETR_ITS ---
PROCEDURE INFORMATION: Exam: PET/CT Whole Body Exam date and time: 10/30/2023 12:24 PM Age: 82 years old Clinical indication: Condition or disease; Primary cancer: Malignant melanoma of skin; Follow-up oncological assessment LABS AND CLINICAL REPORTS: Glucose: 103 mg/dl Treatment strategy for malignancy (PET staging): Restaging (PS) TECHNIQUE: Imaging protocol: Following at least four-hour fasting and following the injection of radiopharmaceutical, low dose CT images were obtained. Then, PET images were obtained. Attenuation corrected images were constructed using the CT scan. Fused images of PET and CT were reviewed. The standardized uptake values (SUV) reported below are maximum values within a region of interest, expressed in gm/ml. Exam includes the whole body. Radiopharmaceutical: 12.35 mCi F-18 FDG (Fluorodeoxyglucose), IV. Time of imaging post radiopharmaceutical administration: 1 hour Injection site: Right hand COMPARISON: [facility] [id number] 02/24/2023 9:11 AM FINDINGS: Brain: Visualized brain has normal physiologic uptake. Pharynx: No abnormal uptake. Larynx: No abnormal uptake. Lungs, pleura and trachea: There is consolidation in the left lower lobe obscuring the previously noted mass in this region. This does not have significant uptake with SUV maximum of 1.6. Emphysematous changes are stable. Right apical solid nodule measuring 1.3 cm without significant uptake on series 3, image 104 is unchanged. Calcified pleural plaques are unchanged. Heart: Normal physiologic uptake. Mediastinal space: No abnormal uptake. Liver: No suspicious uptake is seen in the liver on today's study consistent with treatment effect. Gallbladder and bile ducts: No abnormal uptake. Pancreas: No abnormal uptake. Spleen: No abnormal uptake. Adrenal glands: No abnormal uptake. Kidneys and ureters: Normal physiologic uptake. Stomach and bowel: No abnormal uptake. Urinary bladder: The bladder wall is mildly thickened with incomplete distention similar to previous. Reproductive: Unchanged enlarged prostate. Vasculature: Stable atherosclerosis. Lymph nodes: Lymph node in the aortopulmonary window measures 1.6 x 1.3 cm on series 3, image 112 with uptake SUV maximum measures 3.2, previously 2.[address] is similar. Uptake in the left hilum SUV maximum measures 2.8, previously 4.0, decreased. Subcarinal lymph node is decreased in size measuring 1.2 x 2.0 cm with decreasing uptake. SUV maximum measures 2.3, previously 11.7. No residual right paratracheal, right supraclavicular lymph node uptake. Uptake in the right hilum with SUV maximum of 2.9 is increasing. Left inguinal lymph node is significantly decreased in size now measuring 1.0 x 1.9 cm with no significant uptake. Bones/joints: Interval sclerosis in the left L5 lesion without significant uptake on PET. No new bone lesion visualized. Soft tissues: There is asymmetric muscular uptake right longus coli. Small right fat containing inguinal hernias unchanged. PET/PET WB melanoma SUBSEQ [id number] IMPRESSION: 1. Findings of treatment response since the previous study. Left inguinal lymphadenopathy is significantly decreased with no significant residual uptake. Mass in the left lower lobe is obscured by consolidation which does not have significant uptake, likely reflecting posttreatment changes. The left L5 bone lesion has no significant residual uptake. Previously seen liver lesions no longer seen on PET. 2. There is minimally increased uptake in an aortopulmonary window lymph node and in the right hilum which is nonspecific and may be reactive. Recommend attention on follow-up.
== END 2023-10-30 11:03 | disposition home or self-care (01) ==
PROVIDERS: PCP Family Medicine; Visit Provider Internal Medicine
DX: C43.9 Malignant melanoma of skin, unspecified (principal)
CPT/HCPCS: 78816; A9552

== ENCOUNTER 2023-10-31 10:00 | Oncology outpatient (recurring) (ONCR) | payer MEDICARE, SELFPAY ==
[2023-10-25 12:20] VITALS: BP 119/69; PULSE 78; RESP 16; TEMP 36.7; O2SAT 100
[2023-10-25 12:24] LABS: Basophils # 0.1 10^3/uL (0.0-0.1); Basophils % 0.8 %; Eosinophils # 0.3 10^3/uL (0.0-0.8); Eosinophils % 4.1 %; Hematocrit 40.4 % (37-53); Lymphocytes % 14.8 %; Mean Corpuscular HGB Conc 34.2 g/dL (30-55); Mean Corpuscular Hemoglobin 30.2 pg (27-33); Mean Corpuscular Volume 88.4 fl (82-101); Mean Platelet Volume 9.3 fL (7.4-10.4); Monocytes # 0.6 10^3/uL (0.2-0.9); Monocytes % 8.9 %; Neutrophils # 4.71 10^3/uL (1.8-7.7); Neutrophils % 70.9 %; Nucleated Red Blood Cells % 0 %; Platelet Count 203 10^3/cmm (157-399); Red Blood Count 4.57 10^6/uL (3.85-5.65); Red Cell Distribution Width 12.1 % (12.1-15.1); White Blood Count 6.63 10^3/uL (3.29-11.43)
[2023-10-25 13:06] LABS: Alanine Aminotransferase 21 U/L (0-41); Albumin Level 4.1 g/dL (3.5-5.2); Alkaline Phosphatase 108 U/L (40-130); Anion Gap 14.8 (5-19); Aspartate Amino Transferase 24 U/L (0-40); Blood Urea Nitrogen 17 mg/dL (8-23); Calcium 9.4 mg/dL (8.5-10.5); Carbon Dioxide 27 mmol/L (22-29); Chloride 103 mmol/L (98-107); Glucose 76 mg/dL (65-115); Osmolality Calculated 292 mOsm/kg (285-295); Potassium 3.8 mmol/L (3.5-5.1); Sodium 141 mmol/L (136-145); Total Bilirubin 0.6 mg/dL (0.15-1.2); Total Protein 7.1 g/dL (6.6-8.7)
[2023-10-25] MEDS: denosumab 120 mg SDV SUBCUT (13:10)
[2023-10-31 11:10] LABS: Basophils # 0.1 10^3/uL (0.0-0.1); Basophils % 0.9 %; Eosinophils # 0.2 10^3/uL (0.0-0.8); Eosinophils % 2.6 %; Hematocrit 40.9 % (37-53); Lymphocytes % 17.8 %; Mean Corpuscular HGB Conc 34.2 g/dL (30-55); Mean Corpuscular Hemoglobin 30.4 pg (27-33); Mean Corpuscular Volume 88.7 fl (82-101); Mean Platelet Volume 9.1 fL (7.4-10.4); Monocytes # 0.6 10^3/uL (0.2-0.9); Monocytes % 10.6 %; Neutrophils # 3.88 10^3/uL (1.8-7.7); Neutrophils % 67.8 %; Nucleated Red Blood Cells % 0 %; Platelet Count 205 10^3/cmm (157-399); Red Blood Count 4.61 10^6/uL (3.85-5.65); Red Cell Distribution Width 12.4 % (12.1-15.1); White Blood Count 5.73 10^3/uL (3.29-11.43)
[2023-10-31 11:26] LABS: Alanine Aminotransferase 21 U/L (0-41); Albumin Level 4.2 g/dL (3.5-5.2); Alkaline Phosphatase 108 U/L (40-130); Aspartate Amino Transferase 23 U/L (0-40); Blood Urea Nitrogen 21 mg/dL (8-23); Calcium 9.5 mg/dL (8.5-10.5); Carbon Dioxide 28 mmol/L (22-29); Chloride 105 mmol/L (98-107); Globulin 3.1 g/dL (1.3-4.6); Glucose 72 mg/dL (65-115); Osmolality Calculated 296 mOsm/kg (285-295); Sodium 142 mmol/L (136-145); Total Bilirubin 0.6 mg/dL (0.15-1.2); Total Protein 7.3 g/dL (6.6-8.7)
[2023-10-31] MEDS: nivo-relat 12mg-4mg/mL 40 ML in sodium chloride 0.9% 250 ML 580 ML IV (12:37)
== END 2023-10-31 23:59 | disposition home or self-care (01) ==
PROVIDERS: Internal Medicine; PCP Family Medicine; Visit Provider Internal Medicine Medical Oncology
DX: C43.9 Malignant melanoma of skin, unspecified; C77.5 Secondary and unspecified malignant neoplasm of intrapelvic lymph nodes; Z51.11 Encounter for antineoplastic chemotherapy; Z53.9 Procedure and treatment not carried out, unspecified reason
CPT/HCPCS: 78816; 80053; 84443; 85025; 96372; 96413; A9552; J0897; J7050; J9298

== ENCOUNTER 2023-11-06 13:07 | Oncology outpatient (recurring) (ONCR) | payer MEDICARE, SELFPAY | END 2023-11-21 23:59 | disposition home or self-care (01) | PROVIDERS: PCP Family Medicine; Visit Provider Internal Medicine Medical Oncology | DX: Z79.899 Other long term (current) drug therapy (principal); C43.9 Malignant melanoma of skin, unspecified; C77.5 Secondary and unspecified malignant neoplasm of intrapelvic lymph nodes | CPT/HCPCS: 99214 ==

== ENCOUNTER 2023-11-28 12:13 | Oncology outpatient (recurring) (ONCR) | payer MEDICARE, SELFPAY ==
[2023-11-28 13:13] LABS: Basophils # 0.1 10^3/uL (0.0-0.1); Basophils % 1.1 %; Eosinophils # 0.2 10^3/uL (0.0-0.8); Hematocrit 38.7 % (37-53); Lymphocytes # 0.8 10^3/uL (0.8-4.8); Lymphocytes % 16.1 %; Mean Corpuscular HGB Conc 34.4 g/dL (30-55); Mean Corpuscular Hemoglobin 30.6 pg (27-33); Mean Platelet Volume 9.6 fL (7.4-10.4); Monocytes # 0.4 10^3/uL (0.2-0.9); Monocytes % 6.9 %; Neutrophils # 3.74 10^3/uL (1.8-7.7); Neutrophils % 71.5 %; Nucleated Red Blood Cells % 0 %; Platelet Count 194 10^3/cmm (157-399); Red Blood Count 4.35 10^6/uL (3.85-5.65); White Blood Count 5.23 10^3/uL (3.29-11.43)
[2023-11-28 13:33] LABS: Alanine Aminotransferase 21 U/L (0-41); Albumin Level 4.1 g/dL (3.5-5.2); Alkaline Phosphatase 99 U/L (40-130); Aspartate Amino Transferase 23 U/L (0-40); Blood Urea Nitrogen 19 mg/dL (8-23); Calcium 9.1 mg/dL (8.5-10.5); Carbon Dioxide 26 mmol/L (22-29); Chloride 100 mmol/L (98-107); Globulin 2.8 g/dL (1.3-4.6); Glucose 155 mg/dL (65-115); Osmolality Calculated 289 mOsm/kg (285-295); Sodium 137 mmol/L (136-145); Thyroid Stimulating Hormone 0.92 uIU/mL (0.27-4.20); Total Bilirubin 0.4 mg/dL (0.15-1.2); Total Protein 6.9 g/dL (6.6-8.7)
[2023-11-28 13:37] LABS: Anion Gap 14.7 (5-19); Potassium 3.7 mmol/L (3.5-5.1)
[2023-11-28] MEDS: nivo-relat 12mg-4mg/mL 40 ML in sodium chloride 0.9% 250 ML 580 ML IV (14:19)
[2023-11-28 15:03] VITALS: BP 130/71; PULSE 57; O2SAT 95
== END 2023-11-28 23:59 | disposition home or self-care (01) ==
LOC: ONCMED 12:14
PROVIDERS: Internal Medicine; PCP Family Medicine; Visit Provider Internal Medicine Medical Oncology
DX: C43.9 Malignant melanoma of skin, unspecified (principal); C79.51 Secondary malignant neoplasm of bone
CPT/HCPCS: 80053; 84443; 85025; 96413; A4222; J7050; J9298

== ENCOUNTER 2023-12-26 09:07 | Oncology outpatient (recurring) (ONCR) | payer MEDICARE, SELFPAY ==
[2023-12-26 10:19] LABS: Basophils # 0.1 10^3/uL (0.0-0.1); Basophils % 0.9 %; Eosinophils # 0.3 10^3/uL (0.0-0.8); Eosinophils % 4.1 %; Hematocrit 39.5 % (37-53); Lymphocytes # 1.2 10^3/uL (0.8-4.8); Lymphocytes % 17.2 %; Mean Corpuscular HGB Conc 34.4 g/dL (30-55); Mean Corpuscular Hemoglobin 30.6 pg (27-33); Mean Platelet Volume 9.3 fL (7.4-10.4); Monocytes # 0.6 10^3/uL (0.2-0.9); Monocytes % 9.3 %; Neutrophils # 4.68 10^3/uL (1.8-7.7); Neutrophils % 68.2 %; Nucleated Red Blood Cells % 0 %; Platelet Count 195 10^3/cmm (157-399); Red Blood Count 4.44 10^6/uL (3.85-5.65); Red Cell Distribution Width 12.1 % (12.1-15.1); White Blood Count 6.86 10^3/uL (3.29-11.43)
[2023-12-26 11:00] LABS: Alanine Aminotransferase 22 U/L (0-41); Albumin Level 4.1 g/dL (3.5-5.2); Alkaline Phosphatase 98 U/L (40-130); Anion Gap 13.8 (5-19); Aspartate Amino Transferase 23 U/L (0-40); Blood Urea Nitrogen 22 mg/dL (8-23); Calcium 9.2 mg/dL (8.5-10.5); Carbon Dioxide 28 mmol/L (22-29); Chloride 103 mmol/L (98-107); Globulin 2.9 g/dL (1.3-4.6); Glucose 65 mg/dL (65-115); Osmolality Calculated 291 mOsm/kg (285-295); Potassium 4.8 mmol/L (3.5-5.1); Sodium 140 mmol/L (136-145); Thyroid Stimulating Hormone 1.17 uIU/mL (0.27-4.20); Total Bilirubin 0.5 mg/dL (0.15-1.2)
[2023-12-26] MEDS: denosumab 120 mg SDV SUBCUT (11:48)
[2023-12-26] MEDS: nivo-relat 12mg-4mg/mL 40 ML in sodium chloride 0.9% 250 ML 580 ML IV (11:49)
[2023-12-26 12:35] VITALS: BP 137/78; PULSE 60; RESP 16; TEMP 36.8; O2SAT 97
== END 2023-12-26 23:59 | disposition home or self-care (01) ==
PROVIDERS: Nurse Practitioner Family; PCP Family Medicine; Visit Provider Internal Medicine Medical Oncology
DX: Z51.12 Encounter for antineoplastic immunotherapy; C79.51 Secondary malignant neoplasm of bone; C43.59 Malignant melanoma of other part of trunk; Z79.899 Other long term (current) drug therapy; C77.8 Secondary and unspecified malignant neoplasm of lymph nodes of multiple regions; C78.7 Secondary malignant neoplasm of liver and intrahepatic bile duct; C78.00 Secondary malignant neoplasm of unspecified lung
CPT/HCPCS: 80053; 84443; 85025; 96372; 99214; A4222; J0897; J7050; J9298

== ENCOUNTER → 2024-01-15 08:24 | Outpatient (BNVA) | payer MEDICARE, SELFPAY | PROVIDERS: PCP Family Medicine; Visit Provider Podiatrist Foot & Ankle Surgery | DX: S92.421A Displaced fracture of distal phalanx of right great toe, initial encounter for closed fracture; W20.8XXA Other cause of strike by thrown, projected or falling object, initial encounter | CPT/HCPCS: 99203 ==

== ENCOUNTER 2024-01-23 07:59 | Oncology outpatient (recurring) (ONCR) | payer MEDICARE, SELFPAY ==
[2024-01-23 09:16] LABS: Basophils # 0.1 10^3/uL (0.0-0.1); Basophils % 1.1 %; Eosinophils # 0.2 10^3/uL (0.0-0.8); Eosinophils % 3.6 %; Hematocrit 41.1 % (37-53); Lymphocytes # 0.9 10^3/uL (0.8-4.8); Lymphocytes % 13.2 %; Mean Corpuscular HGB Conc 33.8 g/dL (30-55); Mean Corpuscular Hemoglobin 30.2 pg (27-33); Mean Corpuscular Volume 89.3 fl (82-101); Mean Platelet Volume 9.2 fL (7.4-10.4); Monocytes # 0.5 10^3/uL (0.2-0.9); Neutrophils # 4.91 10^3/uL (1.8-7.7); Neutrophils % 73.6 %; Nucleated Red Blood Cells % 0 %; Platelet Count 204 10^3/cmm (157-399); Red Cell Distribution Width 12.1 % (12.1-15.1); White Blood Count 6.66 10^3/uL (3.29-11.43)
[2024-01-23 09:45] LABS: Alanine Aminotransferase 23 U/L (0-41); Albumin Level 4.1 g/dL (3.5-5.2); Alkaline Phosphatase 100 U/L (40-130); Aspartate Amino Transferase 25 U/L (0-40); Blood Urea Nitrogen 16 mg/dL (8-23); Calcium 9.3 mg/dL (8.5-10.5); Carbon Dioxide 26 mmol/L (22-29); Chloride 105 mmol/L (98-107); Globulin 2.8 g/dL (1.3-4.6); Glucose 114 mg/dL (65-115); Osmolality Calculated 292 mOsm/kg (285-295); Sodium 140 mmol/L (136-145); Thyroid Stimulating Hormone 1.05 uIU/mL (0.27-4.20); Total Bilirubin 0.4 mg/dL (0.15-1.2); Total Protein 6.9 g/dL (6.6-8.7)
[2024-01-23 10:19] LABS: Lactate Dehydrogenase 209 U/L (135-225)
[2024-01-23] MEDS: nivo-relat 12mg-4mg/mL 40 ML in sodium chloride 0.9% 250 ML 580 ML IV (11:38)
[2024-01-23 12:36] VITALS: BP 132/75; PULSE 74; RESP 17; O2SAT 100
== END 2024-01-23 23:59 | disposition home or self-care (01) ==
PROVIDERS: PCP Family Medicine; Visit Provider Internal Medicine Medical Oncology
DX: C43.9 Malignant melanoma of skin, unspecified (principal); Z79.899 Other long term (current) drug therapy; C77.5 Secondary and unspecified malignant neoplasm of intrapelvic lymph nodes
CPT/HCPCS: 80053; 83615; 84443; 85025; 96413; 99213; A4222; J7050; J9298

== ENCOUNTER 2024-01-24 08:11 | Oncology outpatient (recurring) (ONCR) | payer MEDICARE, SELFPAY ==
[2024-01-24] MEDS: denosumab 120 mg SDV SUBCUT (08:46)
[2024-01-24 08:49] VITALS: BP 124/78; PULSE 74; RESP 18; TEMP 36.1; O2SAT 98
== END 2024-02-19 23:59 | disposition home or self-care (01) ==
LOC: ONCMED 08:12
PROVIDERS: PCP Family Medicine; Visit Provider Internal Medicine Medical Oncology
DX: Z51.11 Encounter for antineoplastic chemotherapy; C79.51 Secondary malignant neoplasm of bone
CPT/HCPCS: 96372; J0897

== ENCOUNTER → 2024-01-31 14:23 | Outpatient (BNVA) | payer MEDICARE, SELFPAY | PROVIDERS: PCP Family Medicine; Visit Provider Nurse Practitioner Family | DX: L57.0 Actinic keratosis (principal); C79.89 Secondary malignant neoplasm of other specified sites; Z85.828 Personal history of other malignant neoplasm of skin; H02.105 Unspecified ectropion of left lower eyelid | CPT/HCPCS: 17000; 99213 ==

== ENCOUNTER 2024-02-20 08:44 | Oncology outpatient (recurring) (ONCR) | payer MEDICARE, SELFPAY ==
[2024-02-20 09:20] LABS: Basophils # 0.1 10^3/uL (0.0-0.1); Basophils % 0.7 %; Eosinophils # 0.2 10^3/uL (0.0-0.8); Eosinophils % 3.2 %; Hematocrit 43.3 % (37-53); Lymphocytes % 14.1 %; Mean Corpuscular HGB Conc 33.9 g/dL (30-55); Mean Corpuscular Hemoglobin 30.4 pg (27-33); Mean Corpuscular Volume 89.5 fl (82-101); Mean Platelet Volume 9.2 fL (7.4-10.4); Monocytes # 0.6 10^3/uL (0.2-0.9); Monocytes % 9.1 %; Neutrophils # 4.95 10^3/uL (1.8-7.7); Neutrophils % 72.5 %; Nucleated Red Blood Cells % 0 %; Platelet Count 191 10^3/cmm (157-399); Red Blood Count 4.84 10^6/uL (3.85-5.65); Red Cell Distribution Width 12.2 % (12.1-15.1); White Blood Count 6.83 10^3/uL (3.29-11.43)
[2024-02-20 10:43] LABS: Alanine Aminotransferase 18 U/L (0-41); Albumin Level 4.2 g/dL (3.5-5.2); Alkaline Phosphatase 93 U/L (40-130); Anion Gap 14.2 (5-19); Aspartate Amino Transferase 22 U/L (0-40); Blood Urea Nitrogen 21 mg/dL (8-23); Calcium 9.6 mg/dL (8.5-10.5); Carbon Dioxide 27 mmol/L (22-29); Chloride 102 mmol/L (98-107); Creatinine Clr Calc Pharmacy 70.0842; Glucose 81 mg/dL (65-115); Osmolality Calculated 290 mOsm/kg (285-295); Potassium 4.2 mmol/L (3.5-5.1); Sodium 139 mmol/L (136-145); Total Bilirubin 0.6 mg/dL (0.15-1.2); Total Protein 7.2 g/dL (6.6-8.7)
[2024-02-20 10:52] LABS: Thyroid Stimulating Hormone 0.95 uIU/mL (0.27-4.20)
[2024-02-20] MEDS: nivo-relat 12mg-4mg/mL 40 ML in sodium chloride 0.9% 250 ML 580 ML IV (12:23)
[2024-02-20 13:20] VITALS: BP 128/72; PULSE 65; RESP 17; TEMP 36.2; O2SAT 97
== END 2024-02-20 23:59 | disposition home or self-care (01) ==
PROVIDERS: Nurse Practitioner Family; PCP Family Medicine; Visit Provider Internal Medicine Medical Oncology
DX: C79.51 Secondary malignant neoplasm of bone; Z51.12 Encounter for antineoplastic immunotherapy; C43.9 Malignant melanoma of skin, unspecified
CPT/HCPCS: 80053; 84443; 85025; 96413; 99213; A4222; J7050; J9298

== ENCOUNTER 2024-03-20 11:00 | Oncology outpatient (recurring) (ONCR) | payer MEDICARE, SELFPAY ==
[2024-02-21 10:46] VITALS: BP 144/71; PULSE 71; RESP 16; TEMP 36.8; O2SAT 98
[2024-02-21] MEDS: denosumab 120 mg SDV SUBCUT (10:53)
[2024-03-20 10:51] LABS: Basophils # 0.1 10^3/uL (0.0-0.1); Eosinophils # 0.2 10^3/uL (0.0-0.8); Eosinophils % 3.2 %; Hematocrit 39.3 % (37-53); Lymphocytes # 0.9 10^3/uL (0.8-4.8); Lymphocytes % 15.6 %; Mean Corpuscular HGB Conc 34.1 g/dL (30-55); Mean Corpuscular Volume 87.9 fl (82-101); Mean Platelet Volume 9.4 fL (7.4-10.4); Monocytes # 0.5 10^3/uL (0.2-0.9); Neutrophils # 4.18 10^3/uL (1.8-7.7); Neutrophils % 70.9 %; Nucleated Red Blood Cells % 0 %; Platelet Count 205 10^3/cmm (157-399); Red Blood Count 4.47 10^6/uL (3.85-5.65); Red Cell Distribution Width 12.4 % (12.1-15.1)
[2024-03-20 11:21] LABS: Alanine Aminotransferase 18 U/L (0-41); Albumin Level 4.2 g/dL (3.5-5.2); Alkaline Phosphatase 93 U/L (40-130); Anion Gap 12.9 (5-19); Aspartate Amino Transferase 22 U/L (0-40); Blood Urea Nitrogen 17 mg/dL (8-23); Calcium 8.8 mg/dL (8.5-10.5); Carbon Dioxide 26 mmol/L (22-29); Chloride 106 mmol/L (98-107); Globulin 2.8 g/dL (1.3-4.6); Glucose 91 mg/dL (65-115); Osmolality Calculated 293 mOsm/kg (285-295); Potassium 3.9 mmol/L (3.5-5.1); Sodium 141 mmol/L (136-145); Thyroid Stimulating Hormone 0.97 uIU/mL (0.27-4.20); Total Bilirubin 0.4 mg/dL (0.15-1.2)
[2024-03-20] MEDS: denosumab 120 mg SDV SUBCUT (13:49)
[2024-03-20] MEDS: nivo-relat 12mg-4mg/mL 40 ML in sodium chloride 0.9% 250 ML 580 ML IV (14:06)
[2024-03-20 14:51] VITALS: BP 119/71; PULSE 64; RESP 16; TEMP 36.1; O2SAT 97
== END 2024-03-20 23:59 | disposition home or self-care (01) ==
PROVIDERS: Nurse Practitioner Family; PCP Family Medicine; Visit Provider Internal Medicine Medical Oncology
DX: Z53.9 Procedure and treatment not carried out, unspecified reason; Z51.12 Encounter for antineoplastic immunotherapy; C79.51 Secondary malignant neoplasm of bone; Z87.891 Personal history of nicotine dependence; Z79.899 Other long term (current) drug therapy; C43.59 Malignant melanoma of other part of trunk
CPT/HCPCS: 36415; 80053; 84443; 85025; 96372; 96413; 99213; J0897; J7050; J9298

== ENCOUNTER 2024-04-17 08:29 | Oncology outpatient (recurring) (ONCR) | payer MEDICARE, SELFPAY ==
[2024-04-17 09:18] LABS: Basophils % 0.7 %; Eosinophils # 0.2 10^3/uL (0.0-0.8); Eosinophils % 3.8 %; Hematocrit 40.7 % (37-53); Lymphocytes # 0.8 10^3/uL (0.8-4.8); Lymphocytes % 15.1 %; Mean Corpuscular HGB Conc 33.9 g/dL (30-55); Mean Corpuscular Hemoglobin 30.3 pg (27-33); Mean Corpuscular Volume 89.5 fl (82-101); Mean Platelet Volume 9.2 fL (7.4-10.4); Monocytes # 0.4 10^3/uL (0.2-0.9); Monocytes % 7.9 %; Nucleated Red Blood Cells % 0 %; Platelet Count 196 10^3/cmm (157-399); Red Blood Count 4.55 10^6/uL (3.85-5.65); Red Cell Distribution Width 12.8 % (12.1-15.1); White Blood Count 5.56 10^3/uL (3.29-11.43)
[2024-04-17 09:42] LABS: Alanine Aminotransferase 19 U/L (0-41); Albumin Level 4.1 g/dL (3.5-5.2); Alkaline Phosphatase 84 U/L (40-130); Anion Gap 12.8 (5-19); Aspartate Amino Transferase 22 U/L (0-40); Blood Urea Nitrogen 17 mg/dL (8-23); Carbon Dioxide 29 mmol/L (22-29); Chloride 105 mmol/L (98-107); Globulin 2.7 g/dL (1.3-4.6); Glucose 107 mg/dL (65-115); Osmolality Calculated 298 mOsm/kg (285-295); Potassium 3.8 mmol/L (3.5-5.1); Sodium 143 mmol/L (136-145); Thyroid Stimulating Hormone 0.98 uIU/mL (0.27-4.20); Total Bilirubin 0.6 mg/dL (0.15-1.2); Total Protein 6.8 g/dL (6.6-8.7)
[2024-04-17] MEDS: nivo-relat 12mg-4mg/mL 40 ML in sodium chloride 0.9% 250 ML 580 ML IV (10:40)
[2024-04-17] MEDS: denosumab 120 mg SDV SUBCUT (11:24)
[2024-04-17 11:26] VITALS: BP 137/73; PULSE 49; O2SAT 99
== END 2024-04-17 23:59 | disposition home or self-care (01) ==
PROVIDERS: Nurse Practitioner Family; PCP Family Medicine; Visit Provider Internal Medicine Medical Oncology
DX: Z51.11 Encounter for antineoplastic chemotherapy (principal); C79.51 Secondary malignant neoplasm of bone; Z87.891 Personal history of nicotine dependence; Z85.820 Personal history of malignant melanoma of skin; C61 Malignant neoplasm of prostate; Z79.899 Other long term (current) drug therapy; Z79.818 Long term (current) use of other agents affecting estrogen receptors and estrogen levels; Z53.9 Procedure and treatment not carried out, unspecified reason
CPT/HCPCS: 80053; 84443; 85025; 96372; 96413; 99214; A4222; J0897; J7050; J9298

== ENCOUNTER → 2024-05-01 13:45 | Outpatient (BNVA) | payer MEDICARE, SELFPAY | PROVIDERS: PCP Family Medicine; Visit Provider Dermatology | DX: C79.89 Secondary malignant neoplasm of other specified sites (principal); L57.0 Actinic keratosis; H02.105 Unspecified ectropion of left lower eyelid; L82.1 Other seborrheic keratosis; L81.4 Other melanin hyperpigmentation; L98.8 Other specified disorders of the skin and subcutaneous tissue; Z85.828 Personal history of other malignant neoplasm of skin | CPT/HCPCS: 17000; 99213 ==

== ENCOUNTER 2024-05-19 08:59 | Oncology outpatient (recurring) (ONCR) | payer MEDICARE, SELFPAY ==
[2024-05-19 09:30] LABS: Basophils % 0.7 %; Eosinophils # 0.2 10^3/uL (0.0-0.8); Eosinophils % 3.5 %; Hematocrit 41.3 % (37-53); Lymphocytes # 0.9 10^3/uL (0.8-4.8); Lymphocytes % 15.1 %; Mean Corpuscular HGB Conc 34.1 g/dL (30-55); Mean Corpuscular Hemoglobin 30.5 pg (27-33); Mean Corpuscular Volume 89.2 fl (82-101); Mean Platelet Volume 9.4 fL (7.4-10.4); Monocytes # 0.5 10^3/uL (0.2-0.9); Monocytes % 8.7 %; Neutrophils # 4.27 10^3/uL (1.8-7.7); Neutrophils % 71.7 %; Nucleated Red Blood Cells % 0 %; Platelet Count 187 10^3/cmm (157-399); Red Blood Count 4.63 10^6/uL (3.85-5.65); Red Cell Distribution Width 12.8 % (12.1-15.1); White Blood Count 5.96 10^3/uL (3.29-11.43)
[2024-05-19 10:02] LABS: Alanine Aminotransferase 19 U/L (0-41); Albumin Level 4.3 g/dL (3.5-5.2); Alkaline Phosphatase 81 U/L (40-130); Anion Gap 16.1 (5-19); Aspartate Amino Transferase 21 U/L (0-40); Blood Urea Nitrogen 21 mg/dL (8-23); Calcium 9.1 mg/dL (8.5-10.5); Carbon Dioxide 26 mmol/L (22-29); Chloride 104 mmol/L (98-107); Globulin 2.8 g/dL (1.3-4.6); Glucose 84 mg/dL (65-115); Osmolality Calculated 296 mOsm/kg (285-295); Potassium 4.1 mmol/L (3.5-5.1); Sodium 142 mmol/L (136-145); Testosterone Total 4.4 ng/dL (193-740); Total Bilirubin 0.5 mg/dL (0.15-1.2); Total Protein 7.1 g/dL (6.6-8.7)
[2024-05-19] MEDS: nivo-relat 12mg-4mg/mL 40 ML in sodium chloride 0.9% 250 ML 580 ML IV (10:57)
[2024-05-19 11:55] VITALS: BP 134/73; PULSE 58; RESP 16; TEMP 36.5; O2SAT 96
== END 2024-05-19 23:59 | disposition home or self-care (01) ==
PROVIDERS: PCP Family Medicine; Visit Provider Internal Medicine Medical Oncology
DX: Z51.12 Encounter for antineoplastic immunotherapy (principal); C79.51 Secondary malignant neoplasm of bone; R53.83 Other fatigue; C61 Malignant neoplasm of prostate; R97.20 Elevated prostate specific antigen [PSA]; C43.9 Malignant melanoma of skin, unspecified; Z79.899 Other long term (current) drug therapy
CPT/HCPCS: 80053; 84153; 84403; 85025; 99214; A4222; J7050; J9298

== ENCOUNTER 2024-06-16 11:00 | Oncology outpatient (recurring) (ONCR) | payer MEDICARE, SELFPAY ==
[2024-06-16 12:12] LABS: Basophils % 0.7 %; Eosinophils # 0.3 10^3/uL (0.0-0.8); Eosinophils % 4.8 %; Lymphocytes # 0.9 10^3/uL (0.8-4.8); Lymphocytes % 14.3 %; Mean Corpuscular HGB Conc 34.3 g/dL (30-55); Mean Corpuscular Hemoglobin 30.6 pg (27-33); Mean Corpuscular Volume 89.3 fl (82-101); Mean Platelet Volume 9.4 fL (7.4-10.4); Monocytes # 0.5 10^3/uL (0.2-0.9); Monocytes % 7.9 %; Neutrophils # 4.38 10^3/uL (1.8-7.7); Nucleated Red Blood Cells % 0 %; Platelet Count 209 10^3/cmm (157-399); Red Blood Count 4.48 10^6/uL (3.85-5.65); Red Cell Distribution Width 12.4 % (12.1-15.1); White Blood Count 6.08 10^3/uL (3.29-11.43)
[2024-06-16 12:36] LABS: Alanine Aminotransferase 22 U/L (0-41); Albumin Level 4.3 g/dL (3.5-5.2); Alkaline Phosphatase 90 U/L (40-130); Aspartate Amino Transferase 23 U/L (0-40); Blood Urea Nitrogen 20 mg/dL (8-23); Calcium 9.4 mg/dL (8.5-10.5); Carbon Dioxide 26 mmol/L (22-29); Chloride 103 mmol/L (98-107); Globulin 2.6 g/dL (1.3-4.6); Glucose 79 mg/dL (65-115); Osmolality Calculated 290 mOsm/kg (285-295); Sodium 139 mmol/L (136-145); Total Bilirubin 0.4 mg/dL (0.15-1.2); Total Protein 6.9 g/dL (6.6-8.7)
[2024-06-16 12:53] LABS: Anion Gap 13.9 (5-19); Potassium 3.9 mmol/L (3.5-5.1)
[2024-06-16 12:54] LABS: Lactate Dehydrogenase > 210 U/L (135-225)
[2024-06-16] MEDS: nivo-relat 12mg-4mg/mL 40 ML in sodium chloride 0.9% 250 ML 580 ML IV (15:18)
[2024-06-16 15:59] VITALS: BP 134/74; PULSE 76; RESP 16; TEMP 36.6; O2SAT 96
== END 2024-06-16 23:59 | disposition home or self-care (01) ==
PROVIDERS: PCP Family Medicine; Visit Provider Internal Medicine Medical Oncology
DX: C79.51 Secondary malignant neoplasm of bone; Z51.12 Encounter for antineoplastic immunotherapy; C61 Malignant neoplasm of prostate; Z87.891 Personal history of nicotine dependence; C78.7 Secondary malignant neoplasm of liver and intrahepatic bile duct; C78.00 Secondary malignant neoplasm of unspecified lung; Z85.820 Personal history of malignant melanoma of skin
CPT/HCPCS: 80053; 83615; 84153; 85025; 96413; 99213; J7050; J9298

== ENCOUNTER 2024-07-14 11:01 | Oncology outpatient (recurring) (ONCR) | payer MEDICARE, SELFPAY ==
[2024-07-14 11:52] LABS: Basophils % 0.7 %; Eosinophils # 0.2 10^3/uL (0.0-0.8); Hematocrit 39.7 % (37-53); Lymphocytes # 0.9 10^3/uL (0.8-4.8); Lymphocytes % 15.2 %; Mean Corpuscular HGB Conc 33.8 g/dL (30-55); Mean Corpuscular Hemoglobin 30.5 pg (27-33); Mean Corpuscular Volume 90.4 fl (82-101); Mean Platelet Volume 9.5 fL (7.4-10.4); Monocytes # 0.5 10^3/uL (0.2-0.9); Monocytes % 8.4 %; Neutrophils # 4.32 10^3/uL (1.8-7.7); Neutrophils % 72.2 %; Nucleated Red Blood Cells % 0 %; Platelet Count 198 10^3/cmm (157-399); Red Blood Count 4.39 10^6/uL (3.85-5.65); Red Cell Distribution Width 12.5 % (12.1-15.1); White Blood Count 5.98 10^3/uL (3.29-11.43)
[2024-07-14 12:21] LABS: Alanine Aminotransferase 17 U/L (0-41); Albumin Level 4.2 g/dL (3.5-5.2); Alkaline Phosphatase 81 U/L (40-130); Aspartate Amino Transferase 24 U/L (0-40); Blood Urea Nitrogen 17 mg/dL (8-23); Calcium 9.4 mg/dL (8.5-10.5); Carbon Dioxide 26 mmol/L (22-29); Chloride 106 mmol/L (98-107); Globulin 2.7 g/dL (1.3-4.6); Glucose 72 mg/dL (65-115); Lactate Dehydrogenase 199 U/L (135-225); Osmolality Calculated 294 mOsm/kg (285-295); Sodium 142 mmol/L (136-145); Testosterone Total 2.5 ng/dL (193-740); Total Bilirubin 0.4 mg/dL (0.15-1.2); Total Protein 6.9 g/dL (6.6-8.7)
[2024-07-14] MEDS: nivo-relat 12mg-4mg/mL 40 ML in sodium chloride 0.9% 250 ML 580 ML IV (13:49)
[2024-07-14 14:24] VITALS: BP 138/72; PULSE 66; RESP 16; TEMP 35.8; O2SAT 97
== END 2024-07-14 23:59 | disposition home or self-care (01) ==
PROVIDERS: PCP Family Medicine; Visit Provider Internal Medicine Medical Oncology
DX: C79.51 Secondary malignant neoplasm of bone; Z79.620 Long term (current) use of immunosuppressive biologic; Z51.12 Encounter for antineoplastic immunotherapy; Z87.891 Personal history of nicotine dependence; C78.7 Secondary malignant neoplasm of liver and intrahepatic bile duct; C77.8 Secondary and unspecified malignant neoplasm of lymph nodes of multiple regions; Z85.820 Personal history of malignant melanoma of skin; C61 Malignant neoplasm of prostate; Z79.899 Other long term (current) drug therapy
CPT/HCPCS: 80053; 83615; 84153; 84403; 85025; 96413; 99214; A4222; J7050; J9298

== ENCOUNTER 2024-08-11 09:03 | Oncology outpatient (recurring) (ONCR) | payer MEDICARE, SELFPAY ==
--- NOTE | 2024-07-25 13:37 | PETR_ITS ---
PROCEDURE INFORMATION: Exam: PET/CT Whole Body Exam date and time: 07/25/2024 10:33 AM Age: 83 years old Clinical indication: Condition or disease; Primary cancer: Melanoma; Follow-up oncological assessment; Additional info: Secondary malignant neoplasm of intrapelvic lymph nodes LABS AND CLINICAL REPORTS: Glucose: 91 mg/dl Treatment strategy for malignancy (PET staging): Restaging (PS) TECHNIQUE: Imaging protocol: Following at least four-hour fasting and following the injection of radiopharmaceutical, low dose CT images were obtained. Then, PET images were obtained. Attenuation corrected images were constructed using the CT scan. Fused images of PET and CT were reviewed. The standardized uptake values (SUV) reported below are maximum values within a region of interest, expressed in gm/ml. Exam includes the whole body. Radiopharmaceutical: 11.78 mCi F-18 FDG (Fluorodeoxyglucose), IV. Time of imaging post radiopharmaceutical administration: 54 minutes Injection site: Right hand. COMPARISON: 1. PT PET skull to thigh INIT [id number] 02/24/2023 9:11 AM 2. PT PET WB melanoma SUBSEQ [id number] 10/30/2023 12:24 PM FINDINGS: Brain: Visualized brain has normal physiologic uptake. Pharynx: No abnormal uptake. Larynx: No abnormal uptake. Lungs, pleura and trachea: Redemonstrated emphysematous change and bilateral calcified pleural plaques. Intervally stable non FDG avid thickened irregular left basilar bandlike opacity likely representing posttreatment change. Stable size right upper lobe nodule measuring 1.4 cm on axial image 116 of series 202 shows SUV max of 3.1, previously 0.8. Heart: Normal physiologic uptake. Coronary arteries: Moderate coronary artery calcification. Mediastinal space: No abnormal uptake. Diaphragm: Small hiatal hernia. Liver: No abnormal uptake. Gallbladder and biliary ducts: No abnormal uptake. Cholelithiasis. Pancreas: No abnormal uptake. Spleen: No abnormal uptake. Adrenal glands: No abnormal uptake. Kidneys and ureters: Normal physiologic uptake. Stomach and bowel: No abnormal uptake. Colonic diverticulosis without findings of diverticulitis. Vasculature: No abnormal uptake. Heavy systemic atherosclerotic calcification without aortic aneurysm. Lymph nodes: Stable size mediastinal lymph nodes with index AP window node measuring 1.2 cm in the short axis showing SUV max of 4.4, previously 3.2. Previously non FDG avid right paratracheal node measuring 0.8 cm in the short axis on axial image 125 of series 202 shows SUV max of 4.6, previously non FDG avid. Subcarinal node shows SUV max of 6.1 on axial image 138 of series 202, difficult to discretely measure given adjacent esophagus. Couple small left hilar nodes difficult to discretely measure show SUV max of 5.3 on axial image 142 of series 202, previously 2.9. Small right hilar nodes difficult to discretely measure show SUV max of 3.6 on axial image 145 of series 202, previously 2.9. No enlarged or FDG avid pelvic lymphadenopathy. Skeleton: Degenerative change throughout the axial and appendicular skeletal system. Focal FDG uptake at the anterior right humeral head, low-level within the head and more avid just anterior to cystic change showing SUV max of 13.7 on axial image 101 of series 202 is likely degenerative/inflammatory. Right humeral head suture anchors. Soft tissues: Redemonstrated asymmetric low-level FDG uptake along the right longus coli muscle. Idci-uq-aavpljai FDG uptake along the hohvs-frilamc-lbla-left and musculature without underlying CT abnormality is likely physiologic and/or strain. Small fat containing right inguinal hernia. There is a 9 mm soft tissue density at the subcutaneous left buttock showing SUV max of 8.4. More inferior 13 mm left buttock subcutaneous soft tissue nodule is non FDG avid. PET/PET WB melanoma SUBSEQ [id number] IMPRESSION: 1. Increased [id number] FDG uptake of stable sized mediastinal and bilateral hilar lymph nodes concerning for disease progression. No enlarged or FDG avid pelvic lymphadenopathy. 2. Stable size right upper lobe nodule with mildly increased low-level FDG uptake. 3. Two developed soft tissue density nodules at the subcutaneous left buttock, 1 of which shows avid FDG uptake and another non FDG avid are nonspecific, may represent injection granulomas. 4. Likely degenerative/inflammatory FDG uptake at the anterior right humeral head.
[2024-08-11 09:24] LABS: Basophils # 0.1 10^3/uL (0.0-0.1); Basophils % 0.8 %; Eosinophils # 0.2 10^3/uL (0.0-0.8); Eosinophils % 3.3 %; Lymphocytes # 0.9 10^3/uL (0.8-4.8); Lymphocytes % 14.6 %; Mean Corpuscular HGB Conc 33.3 g/dL (30-55); Mean Corpuscular Hemoglobin 30.1 pg (27-33); Mean Corpuscular Volume 90.3 fl (82-101); Mean Platelet Volume 9.3 fL (7.4-10.4); Monocytes # 0.6 10^3/uL (0.2-0.9); Monocytes % 8.7 %; Neutrophils # 4.55 10^3/uL (1.8-7.7); Neutrophils % 72.1 %; Nucleated Red Blood Cells % 0 %; Platelet Count 199 10^3/cmm (157-399); Red Blood Count 4.65 10^6/uL (3.85-5.65); Red Cell Distribution Width 12.5 % (12.1-15.1); White Blood Count 6.31 10^3/uL (3.29-11.43)
[2024-08-11 09:53] LABS: Albumin Level 4.4 g/dL (3.5-5.2); Alkaline Phosphatase 80 U/L (40-130); Blood Urea Nitrogen 18 mg/dL (8-23); Calcium 9.1 mg/dL (8.5-10.5); Carbon Dioxide 29 mmol/L (22-29); Chloride 100 mmol/L (98-107); Creatinine Clr Calc Pharmacy 69.8753; Globulin 2.8 g/dL (1.3-4.6); Glucose 80 mg/dL (65-115); Osmolality Calculated 283 mOsm/kg (285-295); Sodium 136 mmol/L (136-145); Testosterone Total 2.5 ng/dL (193-740); Thyroid Stimulating Hormone 0.94 uIU/mL (0.27-4.20); Total Bilirubin 0.6 mg/dL (0.15-1.2); Total Protein 7.2 g/dL (6.6-8.7)
[2024-08-11 10:11] LABS: Anion Gap 11.4 (5-19); Potassium 4.4 mmol/L (3.5-5.1)
[2024-08-11 10:12] LABS: Alanine Aminotransferase 20 U/L (0-41); Aspartate Amino Transferase 36 U/L (0-40)
[2024-08-11] MEDS: nivo-relat 12mg-4mg/mL 40 ML in sodium chloride 0.9% 250 ML 580 ML IV (11:47)
[2024-08-11 12:22] VITALS: BP 135/79; PULSE 64; TEMP 36.5; O2SAT 97
== END 2024-08-11 23:59 | disposition home or self-care (01) ==
PROVIDERS: Nurse Practitioner Family; PCP Family Medicine; Visit Provider Internal Medicine Medical Oncology
DX: C79.51 Secondary malignant neoplasm of bone; R53.83 Other fatigue; C77.5 Secondary and unspecified malignant neoplasm of intrapelvic lymph nodes; Z51.12 Encounter for antineoplastic immunotherapy; C43.9 Malignant melanoma of skin, unspecified; C61 Malignant neoplasm of prostate; E78.5 Hyperlipidemia, unspecified; Z53.9 Procedure and treatment not carried out, unspecified reason; Z87.891 Personal history of nicotine dependence; C77.8 Secondary and unspecified malignant neoplasm of lymph nodes of multiple regions; Z85.820 Personal history of malignant melanoma of skin; C78.7 Secondary malignant neoplasm of liver and intrahepatic bile duct; Z79.818 Long term (current) use of other agents affecting estrogen receptors and estrogen levels; Z79.899 Other long term (current) drug therapy
CPT/HCPCS: 78816; 80053; 84153; 84403; 84443; 85025; 96413; 99214; A4222; A9552; J7050; J9298

== ENCOUNTER → 2024-08-12 13:26 | Outpatient (BNVA) | payer MEDICARE, SELFPAY | PROVIDERS: PCP Family Medicine; Visit Provider Dermatology | DX: C79.89 Secondary malignant neoplasm of other specified sites (principal); H02.105 Unspecified ectropion of left lower eyelid; L82.1 Other seborrheic keratosis; L81.4 Other melanin hyperpigmentation; L98.8 Other specified disorders of the skin and subcutaneous tissue; Z85.828 Personal history of other malignant neoplasm of skin; L21.8 Other seborrheic dermatitis; L57.0 Actinic keratosis | CPT/HCPCS: 17000; 99214 ==

== ENCOUNTER → 2024-08-27 09:08 | Outpatient (BNVA) | payer MEDICARE, SELFPAY | PROVIDERS: PCP Family Medicine; Visit Provider Podiatrist Foot & Ankle Surgery | DX: M19.071 Primary osteoarthritis, right ankle and foot | CPT/HCPCS: 73630; 99213 ==

== ENCOUNTER 2024-09-08 09:13 | Oncology outpatient (recurring) (ONCR) | payer MEDICARE, SELFPAY ==
[2024-09-08 10:01] LABS: Basophils # 0.1 10^3/uL (0.0-0.1); Basophils % 0.9 %; Eosinophils # 0.2 10^3/uL (0.0-0.8); Eosinophils % 3.9 %; Hematocrit 40.1 % (37-53); Lymphocytes # 0.9 10^3/uL (0.8-4.8); Lymphocytes % 17.4 %; Mean Corpuscular HGB Conc 33.7 g/dL (30-55); Mean Corpuscular Hemoglobin 29.9 pg (27-33); Mean Corpuscular Volume 88.9 fl (82-101); Mean Platelet Volume 9.4 fL (7.4-10.4); Monocytes # 0.5 10^3/uL (0.2-0.9); Monocytes % 8.6 %; Neutrophils # 3.67 10^3/uL (1.8-7.7); Neutrophils % 68.8 %; Nucleated Red Blood Cells % 0 %; Platelet Count 193 10^3/cmm (157-399); Red Blood Count 4.51 10^6/uL (3.85-5.65); Red Cell Distribution Width 12.2 % (12.1-15.1); White Blood Count 5.34 10^3/uL (3.29-11.43)
[2024-09-08 10:23] LABS: Alanine Aminotransferase 21 U/L (0-41); Albumin Level 4.2 g/dL (3.5-5.2); Alkaline Phosphatase 82 U/L (40-130); Anion Gap 12.2 (5-19); Aspartate Amino Transferase 26 U/L (0-40); Blood Urea Nitrogen 18 mg/dL (8-23); Calcium 9.7 mg/dL (8.5-10.5); Carbon Dioxide 29 mmol/L (22-29); Chloride 104 mmol/L (98-107); Creatinine Clr Calc Pharmacy 71.1761; Globulin 2.9 g/dL (1.3-4.6); Glucose 87 mg/dL (65-115); Osmolality Calculated 293 mOsm/kg (285-295); Potassium 4.2 mmol/L (3.5-5.1); Sodium 141 mmol/L (136-145); Total Bilirubin 0.5 mg/dL (0.15-1.2); Total Protein 7.1 g/dL (6.6-8.7)
[2024-09-08] MEDS: nivo-relat 12mg-4mg/mL 40 ML in sodium chloride 0.9% 250 ML 580 ML IV (11:17)
[2024-09-08 11:54] VITALS: BP 143/95; PULSE 85; RESP 16; TEMP 35.9; O2SAT 97
== END 2024-09-08 23:59 | disposition home or self-care (01) ==
PROVIDERS: Nurse Practitioner Family; PCP Family Medicine; Visit Provider Internal Medicine Medical Oncology
DX: Z53.9 Procedure and treatment not carried out, unspecified reason; Z51.12 Encounter for antineoplastic immunotherapy; C79.51 Secondary malignant neoplasm of bone; C77.5 Secondary and unspecified malignant neoplasm of intrapelvic lymph nodes; C43.59 Malignant melanoma of other part of trunk; C78.00 Secondary malignant neoplasm of unspecified lung; C78.7 Secondary malignant neoplasm of liver and intrahepatic bile duct; C61 Malignant neoplasm of prostate; Z79.899 Other long term (current) drug therapy; Z79.52 Long term (current) use of systemic steroids
CPT/HCPCS: 80053; 85025; 96413; 99214; A4222; J7050; J9298

== ENCOUNTER 2024-10-06 09:15 | Oncology outpatient (recurring) (ONCR) | payer MEDICARE, SELFPAY ==
--- NOTE | 2024-10-03 08:30 | USCV_ITS ---
Dm Ny Age: 83 Gender: M : 1940 Exam Date: 10/03/2024 09:11 Ordering Phys: Bharat Alicia MD Technologist: CT Exam Location: [facility] [place] Indication: BP: 128 / 74 HR: 59 Rhythm: Sinus Technical Quality: Adequate MEASUREMENTS (Male / Female) Normal Values 2D ECHO LVOT Diameter 2.0 cm LV Ejection Fraction MOD 4C 66.3 % LV Ejection Fraction MOD 2C 72.0 % LV Ejection Fraction 2C AL 73.3 % LA Diameter 4.4 cm RA Systolic Volume 4C AL 34.3 ml RA Systolic Volume 4C MOD 33.2 ml LA Sys Volume AL 42.5 cm cubed LA Sys Volume Index AL 21.5 cm cubed/m squared Aorta at Sinotubular Diameter 2.3 cm IVC Diameter 1.7 cm M-MODE LA Ao Ratio MM 1.6 AV Cusp Separation MM 1.3 cm DOPPLER AV Peak Velocity 190.0 cm/s LVOT Peak Velocity 82.0 cm/s AV Area Cont Eq vti 1.1 cm squared AV Area Cont Eq pk 1.4 cm squared MV Peak Velocity 102.0 cm/s MV Area PHT 2.9 cm squared Mitral E to A Ratio 0.7 TR Peak Velocity 220.0 cm/s TR Peak Gradient 19.4 mmHg TR Mean Velocity 180.0 cm/s TR Mean Gradient 13.6 mmHg TR Velocity Time Integral 61.2 cm TV Peak E Velocity 69.0 cm/s PV Peak Velocity 81.0 cm/s FINDINGS Left Ventricle Mild left ventricular hypertrophy. The left ventricular ejection fraction of 55% Right Ventricle The right ventricle is normal in size and function. Right Atrium The right atrium is normal in size. Left Atrium The left atrium is normal in size. Mitral Valve Trace mitral valve regurgitation. Aortic Valve Thickened aortic valve. Aortic valve stenosis. Mild aortic valve regurgitation. Tricuspid Valve Trace to mild tricuspid valve regurgitation. mijd Pulmonic Valve Pulmonic valve not well visualized. Pericardium Normal pericardium without effusion. Aorta Normal ascending aorta dimension. IVC The inferior vena cava appears normal. Of 55% CONCLUSIONS Mild concentric left ventricular hypertrophy with an ejection fraction of 55%. Thickened aortic valv. Mild aortic valve regurgitation. Thickened aortic and mitral There is no pericardial effusion. There are no intracardiac masses. No similar previous studies are available for comparison Dr Sandip Guillen MD FACC (Electronically Signed) Final Date: 03 October 2024 13:38 S
[2024-10-06 09:32] LABS: Basophils % 0.7 %; Eosinophils # 0.2 10^3/uL (0.0-0.8); Eosinophils % 2.9 %; Hematocrit 40.5 % (37-53); Lymphocytes # 0.8 10^3/uL (0.8-4.8); Lymphocytes % 15.1 %; Mean Corpuscular HGB Conc 33.6 g/dL (30-55); Mean Corpuscular Volume 89.2 fl (82-101); Mean Platelet Volume 9.3 fL (7.4-10.4); Monocytes # 0.5 10^3/uL (0.2-0.9); Monocytes % 8.8 %; Neutrophils # 4.01 10^3/uL (1.8-7.7); Nucleated Red Blood Cells % 0 %; Platelet Count 195 10^3/cmm (157-399); Red Blood Count 4.54 10^6/uL (3.85-5.65); Red Cell Distribution Width 12.2 % (12.1-15.1); White Blood Count 5.57 10^3/uL (3.29-11.43)
[2024-10-06 10:02] LABS: Alanine Aminotransferase 19 U/L (0-41); Albumin Level 4.3 g/dL (3.5-5.2); Alkaline Phosphatase 90 U/L (40-130); Anion Gap 12.8 (5-19); Aspartate Amino Transferase 24 U/L (0-40); Blood Urea Nitrogen 19 mg/dL (8-23); Calcium 9.4 mg/dL (8.5-10.5); Carbon Dioxide 29 mmol/L (22-29); Chloride 102 mmol/L (98-107); Creatinine Clr Calc Pharmacy 71.5477; Globulin 2.7 g/dL (1.3-4.6); Glucose 70 mg/dL (65-115); Osmolality Calculated 291 mOsm/kg (285-295); Potassium 3.8 mmol/L (3.5-5.1); Sodium 140 mmol/L (136-145); Thyroid Stimulating Hormone 1.05 uIU/mL (0.27-4.20); Total Bilirubin 0.5 mg/dL (0.15-1.2)
[2024-10-06] MEDS: nivo-relat 12mg-4mg/mL 40 ML in sodium chloride 0.9% 250 ML 580 ML IV (11:34)
[2024-10-06 12:33] VITALS: BP 132/86; PULSE 64; RESP 17; TEMP 36.3; O2SAT 99
[2024-10-06 13:15] LABS: Prostate Specific Antigen 0.653 ng/mL (0-4)
[2024-10-06 13:16] LABS: Testosterone Total < 2.5 ng/dL (193-740)
== END 2024-10-06 23:59 | disposition home or self-care (01) ==
PROVIDERS: Nurse Practitioner Family; PCP Family Medicine; Visit Provider Internal Medicine Medical Oncology
DX: Z79.899 Other long term (current) drug therapy; R01.1 Cardiac murmur, unspecified; Z51.12 Encounter for antineoplastic immunotherapy; C61 Malignant neoplasm of prostate; Z87.891 Personal history of nicotine dependence; C77.8 Secondary and unspecified malignant neoplasm of lymph nodes of multiple regions; Z85.820 Personal history of malignant melanoma of skin; C79.51 Secondary malignant neoplasm of bone; Z53.9 Procedure and treatment not carried out, unspecified reason
CPT/HCPCS: 80053; 84153; 84403; 84443; 85025; 93306; 96413; 99214; A4222; J7050; J9298

== ENCOUNTER 2024-11-04 12:00 | Oncology outpatient (recurring) (ONCR) | payer MEDICARE, SELFPAY ==
[2024-11-03 08:53] LABS: Basophils % 0.4 %; Eosinophils # 0.2 10^3/uL (0.0-0.8); Eosinophils % 4.4 %; Hematocrit 42.1 % (37-53); Lymphocytes # 0.7 10^3/uL (0.8-4.8); Lymphocytes % 13.8 %; Mean Corpuscular Volume 90.7 fl (82-101); Mean Platelet Volume 9.2 fL (7.4-10.4); Monocytes # 0.6 10^3/uL (0.2-0.9); Monocytes % 11.7 %; Neutrophils # 3.62 10^3/uL (1.8-7.7); Neutrophils % 69.3 %; Nucleated Red Blood Cells % 0 %; Platelet Count 201 10^3/cmm (157-399); Red Blood Count 4.64 10^6/uL (3.85-5.65); Red Cell Distribution Width 12.7 % (12.1-15.1); White Blood Count 5.22 10^3/uL (3.29-11.43)
[2024-11-03 09:24] LABS: Alanine Aminotransferase 20 U/L (0-41); Albumin Level 4.3 g/dL (3.5-5.2); Alkaline Phosphatase 113 U/L (40-130); Anion Gap 15.1 (5-19); Aspartate Amino Transferase 26 U/L (0-40); Blood Urea Nitrogen 14 mg/dL (8-23); Calcium 9.6 mg/dL (8.5-10.5); Carbon Dioxide 28 mmol/L (22-29); Chloride 102 mmol/L (98-107); Creatinine Clr Calc Pharmacy 71.7338; Glucose 69 mg/dL (65-115); Osmolality Calculated 291 mOsm/kg (285-295); Potassium 4.1 mmol/L (3.5-5.1); Sodium 141 mmol/L (136-145); Thyroid Stimulating Hormone 0.95 uIU/mL (0.27-4.20); Total Bilirubin 0.5 mg/dL (0.15-1.2); Total Protein 7.3 g/dL (6.6-8.7)
[2024-11-03 10:27] LABS: Prostate Specific Antigen 0.605 ng/mL (0-4)
[2024-11-03 10:33] LABS: Testosterone Total < 2.5 ng/dL (193-740)
[2024-11-04 10:10] VITALS: BP 139/77; PULSE 67; RESP 17; TEMP 36.3; O2SAT 99
[2024-11-04] MEDS: nivo-relat 12mg-4mg/mL 40 ML in sodium chloride 0.9% 250 ML 580 ML IV (10:42)
[2024-11-04 11:28] VITALS: BP 123/71; PULSE 74; RESP 17; TEMP 35.9; O2SAT 100
== END 2024-11-04 23:59 | disposition home or self-care (01) ==
PROVIDERS: Nurse Practitioner Family; PCP Family Medicine; Visit Provider Internal Medicine Medical Oncology
DX: Z53.9 Procedure and treatment not carried out, unspecified reason (principal); Z51.11 Encounter for antineoplastic chemotherapy; C43.9 Malignant melanoma of skin, unspecified; Z79.899 Other long term (current) drug therapy
CPT/HCPCS: 36415; 80053; 84153; 84403; 84443; 85025; 96413; 99213; J7050; J9298

== ENCOUNTER → 2024-11-13 14:06 | Outpatient (BNVA) | payer MEDICARE, SELFPAY | PROVIDERS: PCP Family Medicine; Visit Provider Dermatology | DX: C79.89 Secondary malignant neoplasm of other specified sites (principal); L98.8 Other specified disorders of the skin and subcutaneous tissue; H02.105 Unspecified ectropion of left lower eyelid; L82.1 Other seborrheic keratosis; L21.8 Other seborrheic dermatitis; Z08 Encounter for follow-up examination after completed treatment for malignant neoplasm; Z85.828 Personal history of other malignant neoplasm of skin; L57.0 Actinic keratosis | CPT/HCPCS: 17000; 99214 ==

== ENCOUNTER 2024-11-14 09:36 | Oncology outpatient (recurring) (ONCR) | payer MEDICARE, SELFPAY ==
--- NOTE | 2024-11-14 09:56 | PETR_ITS ---
PROCEDURE INFORMATION: Exam: PET/CT Skull Base to Mid-thigh Exam date and time: 11/14/2024 10:45 AM Age: 83 years old Clinical indication: Condition or disease; Primary cancer: Melanoma; Additional info: Surveillance LABS AND CLINICAL REPORTS: Glucose: 99 mg/dl Treatment strategy for malignancy (PET staging): Restaging (PS) TECHNIQUE: Imaging protocol: Following at least four-hour fasting and following the injection of radiopharmaceutical, low dose CT images were obtained. Then, PET images were obtained. Attenuation corrected images were constructed using the CT scan. Fused images of PET and CT were reviewed. The standardized uptake values (SUV) reported below are maximum values within a region of interest, expressed in gm/ml. Exam includes orbital meatal line to mid-thigh. SUV normalization method: BodyWeight Radiopharmaceutical: 10.83 mCi F-18 FDG (Fluorodeoxyglucose), IV. Time of imaging post radiopharmaceutical administration: 46 minutes Injection site: right hand COMPARISON: PT PET WB melanoma SUBSEQ [id number] 07/25/2024 10:33 AM FINDINGS: Brain: Visualized brain has normal physiologic uptake. Pharynx: No abnormal uptake. Larynx: No abnormal uptake. Lungs, pleura and trachea: Increased FDG uptake is seen within the dependent portions of the lungs bilaterally with SUV max 6.0 involving the left lower lobe. There are no discrete nodules seen in this region. Some vague ground-glass opacities are seen in this region, not substantially changed from prior and favored to reflect atelectasis. Minimal FDG uptake is seen associated with the 1.1 cm right upper lobe pulmonary nodule with SUV max 2.0. Calcified pleural plaques are seen bilaterally. Emphysematous changes in the lungs. Heart: Normal physiologic uptake. Mediastinal space: No abnormal uptake. Liver: Calcified hepatic granulomas. Gallbladder and biliary ducts: Cholelithiasis. Pancreas: No abnormal uptake. Spleen: No abnormal uptake. Adrenal glands: No abnormal uptake. Kidneys and ureters: Tiny nonobstructing left renal calculi. Stomach and bowel: Colonic diverticulosis without evidence of diverticulitis. No bowel obstruction. Vasculature: Heavy burden of atherosclerotic plaque in the abdominal aorta and branch vessels. No aneurysm. Lymph nodes: Similar mildly hypermetabolic mediastinal and hilar lymph nodes. Index AP window lymph node has SUV max 4.4, similar to prior. Skeleton: Similar FDG uptake along the anterior aspect of the humeral head, which is likely degenerative or inflammatory. Similar rounded sclerotic lesion in the L5 vertebral body without increased FDG uptake. Soft tissues: Focal FDG uptake associated with a small soft tissue lesion in the subcutaneous fat overlying the left gluteal region with SUV max 4.8, previously 8.4. The associated soft tissue component appears smaller, now measuring up to 5 mm, previously 1 cm. This again may reflect an injection granuloma. Mild skin thickening over the left posterior hip region with slight increased FDG uptake with SUV max 1.9. Small fat containing right inguinal hernia. METRICS: Mediastinal blood pool: SUV max is 2.6 Liver uptake: SUV max is 2.8 PET/PET skull to thigh SUBS [id number] IMPRESSION: 1. Similar mildly hypermetabolic mediastinal and hilar lymph nodes, nonspecific. 2. Increased FDG uptake is seen within the dependent portions of the lungs bilaterally. There are some vague ground-glass opacities in this region favored to reflect atelectasis. No discrete nodules are seen in this region. Recommend attention on follow-up. 3. Similar minimal FDG uptake associated with the right upper lobe pulmonary nodule. 4. Mild skin thickening over the left posterior hip region with slight increased FDG uptake with SUV max 1.9. This should be amenable to direct inspection.
== END 2024-11-21 23:59 | disposition home or self-care (01) ==
LOC: ONCMED 09:38 → RAD 09:43 → ONCMED 11-17 09:48
PROVIDERS: PCP Family Medicine; Visit Provider Nurse Practitioner Family
DX: Z53.9 Procedure and treatment not carried out, unspecified reason (principal); C77.5 Secondary and unspecified malignant neoplasm of intrapelvic lymph nodes; C43.9 Malignant melanoma of skin, unspecified; R91.8 Other nonspecific abnormal finding of lung field; R23.4 Changes in skin texture
CPT/HCPCS: 78815; A9552

== ENCOUNTER 2024-12-01 08:01 | Oncology outpatient (recurring) (ONCR) | payer MEDICARE, SELFPAY ==
[2024-12-01 08:31] LABS: Basophils # 0.1 10^3/uL (0.0-0.1); Basophils % 0.8 %; Eosinophils # 0.2 10^3/uL (0.0-0.8); Eosinophils % 3.5 %; Hematocrit 42.5 % (37-53); Lymphocytes # 0.9 10^3/uL (0.8-4.8); Lymphocytes % 13.4 %; Mean Corpuscular HGB Conc 32.9 g/dL (30-55); Mean Corpuscular Hemoglobin 29.5 pg (27-33); Mean Corpuscular Volume 89.7 fl (82-101); Mean Platelet Volume 9.2 fL (7.4-10.4); Monocytes # 0.6 10^3/uL (0.2-0.9); Monocytes % 9.1 %; Neutrophils # 4.64 10^3/uL (1.8-7.7); Neutrophils % 72.9 %; Nucleated Red Blood Cells % 0 %; Platelet Count 232 10^3/cmm (157-399); Red Blood Count 4.74 10^6/uL (3.85-5.65); Red Cell Distribution Width 12.7 % (12.1-15.1); White Blood Count 6.36 10^3/uL (3.29-11.43)
[2024-12-01 09:01] LABS: Alanine Aminotransferase 20 U/L (0-41); Albumin Level 4.2 g/dL (3.5-5.2); Alkaline Phosphatase 131 U/L (40-130); Aspartate Amino Transferase 35 U/L (0-40); Blood Urea Nitrogen 19 mg/dL (8-23); Carbon Dioxide 26 mmol/L (22-29); Chloride 102 mmol/L (98-107); Creatinine Clr Calc Pharmacy 61.4503; Globulin 3.3 g/dL (1.3-4.6); Glucose 86 mg/dL (65-115); Osmolality Calculated 296 mOsm/kg (285-295); Sodium 142 mmol/L (136-145); Thyroid Stimulating Hormone 1.47 uIU/mL (0.27-4.20); Total Bilirubin 0.5 mg/dL (0.15-1.2); Total Protein 7.5 g/dL (6.6-8.7)
[2024-12-01] MEDS: nivo-relat 12mg-4mg/mL 40 ML in sodium chloride 0.9% 250 ML 580 ML IV (09:52)
[2024-12-01 11:28] VITALS: BP 136/77; PULSE 71; TEMP 36.6; O2SAT 91
== END 2024-12-01 23:59 | disposition home or self-care (01) ==
PROVIDERS: PCP Family Medicine; Visit Provider Nurse Practitioner Family
DX: Z51.11 Encounter for antineoplastic chemotherapy (principal); C61 Malignant neoplasm of prostate; C79.2 Secondary malignant neoplasm of skin; C78.7 Secondary malignant neoplasm of liver and intrahepatic bile duct; C79.51 Secondary malignant neoplasm of bone; C78.01 Secondary malignant neoplasm of right lung; Z79.899 Other long term (current) drug therapy; Z87.891 Personal history of nicotine dependence
CPT/HCPCS: 80053; 84443; 85025; 96413; 99214; A4222; J7050; J9298

== ENCOUNTER 2024-12-29 08:09 | Oncology outpatient (recurring) (ONCR) | payer MEDICARE, SELFPAY ==
[2024-12-29 08:38] LABS: Basophils # 0.1 10^3/uL (0.0-0.1); Basophils % 0.9 %; Eosinophils # 0.2 10^3/uL (0.0-0.8); Eosinophils % 4.1 %; Hematocrit 43.2 % (37-53); Lymphocytes # 0.7 10^3/uL (0.8-4.8); Lymphocytes % 12.6 %; Mean Corpuscular HGB Conc 32.6 g/dL (30-55); Mean Corpuscular Hemoglobin 29.3 pg (27-33); Mean Corpuscular Volume 89.6 fl (82-101); Mean Platelet Volume 9.7 fL (7.4-10.4); Monocytes # 0.5 10^3/uL (0.2-0.9); Monocytes % 8.2 %; Neutrophils # 4.33 10^3/uL (1.8-7.7); Nucleated Red Blood Cells % 0 %; Platelet Count 204 10^3/cmm (157-399); Red Blood Count 4.82 10^6/uL (3.85-5.65); Red Cell Distribution Width 12.6 % (12.1-15.1); White Blood Count 5.85 10^3/uL (3.29-11.43)
[2024-12-29 09:13] LABS: Alanine Aminotransferase 18 U/L (0-41); Albumin Level 4.1 g/dL (3.5-5.2); Alkaline Phosphatase 108 U/L (40-130); Aspartate Amino Transferase 28 U/L (0-40); Blood Urea Nitrogen 23 mg/dL (8-23); Calcium 9.3 mg/dL (8.5-10.5); Carbon Dioxide 29 mmol/L (22-29); Chloride 98 mmol/L (98-107); Creatinine Clr Calc Pharmacy 67.4121; Globulin 3.2 g/dL (1.3-4.6); Glucose 98 mg/dL (65-115); Osmolality Calculated 288 mOsm/kg (285-295); Sodium 137 mmol/L (136-145); Thyroid Stimulating Hormone 1.29 uIU/mL (0.27-4.20); Total Bilirubin 0.4 mg/dL (0.15-1.2); Total Protein 7.3 g/dL (6.6-8.7)
[2024-12-29 10:09] LABS: Anion Gap 13.7 (5-19); Potassium 3.7 mmol/L (3.5-5.1)
[2024-12-29] MEDS: nivo-relat 12mg-4mg/mL 40 ML in sodium chloride 0.9% 250 ML 580 ML IV (10:49)
[2024-12-29 11:28] VITALS: BP 123/76; PULSE 78; RESP 18; TEMP 36.8; O2SAT 96
== END 2024-12-29 23:59 | disposition home or self-care (01) ==
PROVIDERS: Internal Medicine Medical Oncology; PCP Family Medicine; Visit Provider Nurse Practitioner Family
DX: Z51.12 Encounter for antineoplastic immunotherapy (principal); C43.59 Malignant melanoma of other part of trunk; C61 Malignant neoplasm of prostate; C79.51 Secondary malignant neoplasm of bone; C78.7 Secondary malignant neoplasm of liver and intrahepatic bile duct; C77.8 Secondary and unspecified malignant neoplasm of lymph nodes of multiple regions; C78.02 Secondary malignant neoplasm of left lung; Z79.620 Long term (current) use of immunosuppressive biologic; Z87.891 Personal history of nicotine dependence
CPT/HCPCS: 80053; 84443; 85025; 96413; 99214; A4222; J7050; J9298

== ENCOUNTER 2025-01-26 08:04 | Oncology outpatient (recurring) (ONCR) | payer MEDICARE, SELFPAY ==
[2025-01-26 08:56] LABS: Basophils % 0.5 %; Eosinophils # 0.2 10^3/uL (0.0-0.8); Eosinophils % 1.9 %; Hematocrit 43.8 % (37-53); Lymphocytes # 0.9 10^3/uL (0.8-4.8); Lymphocytes % 10.4 %; Mean Corpuscular HGB Conc 33.1 g/dL (30-55); Mean Corpuscular Hemoglobin 29.5 pg (27-33); Mean Corpuscular Volume 89.2 fl (82-101); Mean Platelet Volume 8.9 fL (7.4-10.4); Monocytes # 0.7 10^3/uL (0.2-0.9); Monocytes % 8.4 %; Neutrophils # 6.48 10^3/uL (1.8-7.7); Neutrophils % 78.4 %; Nucleated Red Blood Cells % 0 %; Platelet Count 232 10^3/cmm (157-399); Red Blood Count 4.91 10^6/uL (3.85-5.65); White Blood Count 8.26 10^3/uL (3.29-11.43)
[2025-01-26 09:26] LABS: Alanine Aminotransferase 17 U/L (0-41); Albumin Level 4.2 g/dL (3.5-5.2); Alkaline Phosphatase 98 U/L (40-130); Anion Gap 13.7 (5-19); Aspartate Amino Transferase 23 U/L (0-40); Blood Urea Nitrogen 19 mg/dL (8-23); Calcium 9.7 mg/dL (8.5-10.5); Carbon Dioxide 29 mmol/L (22-29); Chloride 102 mmol/L (98-107); Creatinine Clr Calc Pharmacy 67.2293; Globulin 3.3 g/dL (1.3-4.6); Glucose 87 mg/dL (65-115); Osmolality Calculated 294 mOsm/kg (285-295); Potassium 3.7 mmol/L (3.5-5.1); Sodium 141 mmol/L (136-145); Thyroid Stimulating Hormone 1.03 uIU/mL (0.27-4.20); Total Bilirubin 0.4 mg/dL (0.15-1.2); Total Protein 7.5 g/dL (6.6-8.7)
[2025-01-26] MEDS: nivo-relat 12mg-4mg/mL 40 ML in sodium chloride 0.9% 250 ML 580 ML IV (10:28)
[2025-01-26 11:18] VITALS: BP 105/63; PULSE 61; RESP 17; TEMP 36.5; O2SAT 99
== END 2025-01-26 23:59 | disposition home or self-care (01) ==
PROVIDERS: Internal Medicine Medical Oncology; PCP Family Medicine; Visit Provider Nurse Practitioner Family
DX: Z51.12 Encounter for antineoplastic immunotherapy (principal); C61 Malignant neoplasm of prostate; C79.51 Secondary malignant neoplasm of bone; C78.7 Secondary malignant neoplasm of liver and intrahepatic bile duct; C79.2 Secondary malignant neoplasm of skin; C78.02 Secondary malignant neoplasm of left lung; E78.5 Hyperlipidemia, unspecified; Z79.620 Long term (current) use of immunosuppressive biologic; Z87.891 Personal history of nicotine dependence
CPT/HCPCS: 80053; 84443; 85025; 96413; 99214; A4222; J7050; J9298

== ENCOUNTER 2025-02-13 09:31 | Oncology outpatient (recurring) (ONCR) | payer MEDICARE, SELFPAY ==
--- NOTE | 2025-02-13 10:00 | PETR_ITS ---
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 Then, PET images were obtained. Attenuation corrected images were constructed using the CT scan. Fused images of PET and CT were reviewed. The standardized uptake values (SUV) reported below are maximum values within a region of interest, expressed in gm/ml. Exam includes orbital meatal line to mid-thigh. SUV normalization method: BodyWeight Radiopharmaceutical: 12.35 mCi F-18 FDG (Fluorodeoxyglucose), IV. Time of imaging post radiopharmaceutical administration: 55 minutes Injection site: right hand COMPARISON: PT PET skull to thigh SUBS [id number] 11/14/2024 10:45 AM FINDINGS: Brain: Visualized brain has normal physiologic uptake. Pharynx: No abnormal uptake. Larynx: No abnormal uptake. Lungs, pleura and trachea: Redemonstrated emphysematous change and bilateral calcified pleural plaques. Intervally stable non FDG avid thickened irregular left basilar bandlike opacity likely representing atelectasis or scar. Stable right upper lobe nodule measures 1.4 cm on axial image 108 and shows SUV max 2.2. Decreased bilateral dependent lower lobe FDG uptake with only mild residual. Heart: Normal physiologic uptake. Coronary arteries: Moderate coronary artery calcification. Mediastinal space: No abnormal uptake. Liver: No abnormal uptake. Gallbladder and biliary ducts: No abnormal uptake. Cholelithiasis. Pancreas: No abnormal uptake. Spleen: No abnormal uptake. Adrenal glands: No abnormal uptake. Kidneys and ureters: Normal physiologic uptake. Stomach and bowel: Diffuse colonic uptake without underlying CT abnormality. Colonic diverticulosis without findings of diverticulitis. Vasculature: No abnormal uptake. Heavy systemic atherosclerotic calcification without aortic aneurysm. Lymph nodes: Stable size mediastinal lymph nodes with mild waxing and waning [id number] FDG uptake at mediastinal nodes and bilateral heather with some showing associated calcifications. Index AP window node shows SUV max 3.4, previously 4.4 and subcarinal node shows SUV max 5.0, previously 4.3. No enlarged or FDG avid pelvic lymphadenopathy. Skeleton: Degenerative change throughout the axial and appendicular skeletal system. Stable focal FDG uptake at the anterior right humeral head is likely degenerative/inflammatory. Right humeral head suture anchors. Soft tissues: Small fat containing right inguinal hernia. Increased dermal thickening at the left posterior hip region measures 18 x 7 mm on axial image 251 and shows SUV max 8.8, previously 11 x 6 mm with SUV max 1.9. Couple small FDG avid subcutaneous nodules at the left buttock similar to decreased from comparison likely represent injection granulomas. METRICS: Mediastinal blood pool: SUV mean 1.9 Liver uptake: SUV mean 2.1 PET/PET skull to thigh SUBS [id number] IMPRESSION: 1. Mild waxing and waning [id number] FDG uptake of stable size mediastinal and bilateral hilar lymph nodes. Although these may be neoplastic, could also be on the basis of granulomatous disease. No enlarged or FDG avid pelvic lymphadenopathy. 2. Increased FDG avid dermal thickening at the left posterior hip region. Correlate with clinical exam and consideration for tissue sampling. 3. Stable right upper lobe nodule with very low-level FDG uptake. 4. Decreased dependent pulmonary lower lobe FDG uptake with mild residual likely represents resolving inflammation. 5. Diffuse colonic FDG uptake is likely physiologic or inflammatory, query metformin use.
== END 2025-02-18 23:59 | disposition home or self-care (01) ==
LOC: RAD 09:34 → ONCMED 02-16 09:46
PROVIDERS: PCP Family Medicine; Visit Provider Internal Medicine Medical Oncology
DX: C77.5 Secondary and unspecified malignant neoplasm of intrapelvic lymph nodes (principal); R22.9 Localized swelling, mass and lump, unspecified; Z79.899 Other long term (current) drug therapy; R01.1 Cardiac murmur, unspecified; Z51.11 Encounter for antineoplastic chemotherapy; C79.51 Secondary malignant neoplasm of bone; R53.83 Other fatigue; C43.9 Malignant melanoma of skin, unspecified
CPT/HCPCS: 78815; A9552

== ENCOUNTER 2025-02-23 08:39 | Oncology outpatient (recurring) (ONCR) | payer MEDICARE, SELFPAY ==
[2025-02-23 09:10] LABS: Basophils # 0.1 10^3/uL (0.0-0.1); Basophils % 0.6 %; Eosinophils # 0.2 10^3/uL (0.0-0.8); Hematocrit 42.2 % (37-53); Lymphocytes # 0.8 10^3/uL (0.8-4.8); Lymphocytes % 10.2 %; Mean Corpuscular HGB Conc 33.2 g/dL (30-55); Mean Corpuscular Hemoglobin 29.2 pg (27-33); Mean Corpuscular Volume 87.9 fl (82-101); Mean Platelet Volume 8.9 fL (7.4-10.4); Monocytes # 0.6 10^3/uL (0.2-0.9); Monocytes % 7.7 %; Neutrophils # 6.39 10^3/uL (1.8-7.7); Neutrophils % 78.3 %; Nucleated Red Blood Cells % 0 %; Platelet Count 243 10^3/cmm (157-399); Red Cell Distribution Width 13.3 % (12.1-15.1); White Blood Count 8.16 10^3/uL (3.29-11.43)
[2025-02-23 09:37] LABS: Alanine Aminotransferase 18 U/L (0-41); Albumin Level 4.1 g/dL (3.5-5.2); Alkaline Phosphatase 107 U/L (40-130); Aspartate Amino Transferase 24 U/L (0-40); Blood Urea Nitrogen 17 mg/dL (8-23); Calcium 9.2 mg/dL (8.5-10.5); Carbon Dioxide 28 mmol/L (22-29); Chloride 104 mmol/L (98-107); Creatinine Clr Calc Pharmacy 67.2293; Globulin 3.3 g/dL (1.3-4.6); Glucose 77 mg/dL (65-115); Osmolality Calculated 294 mOsm/kg (285-295); Sodium 142 mmol/L (136-145); Thyroid Stimulating Hormone 0.89 uIU/mL (0.27-4.20); Total Bilirubin 0.4 mg/dL (0.15-1.2); Total Protein 7.4 g/dL (6.6-8.7)
[2025-02-23 10:06] LABS: Anion Gap 13.9 (5-19); Potassium 3.9 mmol/L (3.5-5.1)
[2025-02-23] MEDS: nivo-relat 12mg-4mg/mL 40 ML in sodium chloride 0.9% 250 ML 580 ML IV (11:30)
[2025-02-23 12:04] VITALS: BP 152/90; PULSE 74; RESP 17; TEMP 36.4; O2SAT 99
== END 2025-02-23 23:59 | disposition home or self-care (01) ==
PROVIDERS: PCP Family Medicine; Visit Provider Internal Medicine Medical Oncology
DX: Z51.11 Encounter for antineoplastic chemotherapy (principal); C61 Malignant neoplasm of prostate; C43.59 Malignant melanoma of other part of trunk; C79.51 Secondary malignant neoplasm of bone; C78.02 Secondary malignant neoplasm of left lung; C78.7 Secondary malignant neoplasm of liver and intrahepatic bile duct; C77.8 Secondary and unspecified malignant neoplasm of lymph nodes of multiple regions; Z79.899 Other long term (current) drug therapy; Z87.891 Personal history of nicotine dependence
CPT/HCPCS: 80053; 84443; 85025; 96413; 99214; A4222; J7050; J9298

== ENCOUNTER → 2025-03-17 13:01 | Outpatient (BNVA) | payer MEDICARE, SELFPAY | PROVIDERS: PCP Family Medicine; Visit Provider Dermatology | DX: C79.89 Secondary malignant neoplasm of other specified sites (principal); L98.8 Other specified disorders of the skin and subcutaneous tissue; H02.105 Unspecified ectropion of left lower eyelid; L82.1 Other seborrheic keratosis; L21.8 Other seborrheic dermatitis; Z08 Encounter for follow-up examination after completed treatment for malignant neoplasm; Z85.828 Personal history of other malignant neoplasm of skin; L57.0 Actinic keratosis | CPT/HCPCS: 17000; 99214 ==

== ENCOUNTER 2025-03-23 09:21 | Oncology outpatient (recurring) (ONCR) | payer MEDICARE, SELFPAY ==
[2025-03-23 09:57] LABS: Basophils # 0.1 10^3/uL (0.0-0.1); Basophils % 0.9 %; Eosinophils # 0.2 10^3/uL (0.0-0.8); Eosinophils % 2.8 %; Hematocrit 40.3 % (37-53); Lymphocytes # 0.9 10^3/uL (0.8-4.8); Lymphocytes % 13.9 %; Mean Corpuscular HGB Conc 33.5 g/dL (30-55); Mean Corpuscular Hemoglobin 29.3 pg (27-33); Mean Corpuscular Volume 87.6 fl (82-101); Mean Platelet Volume 9.5 fL (7.4-10.4); Monocytes # 0.6 10^3/uL (0.2-0.9); Monocytes % 8.2 %; Neutrophils # 4.92 10^3/uL (1.8-7.7); Neutrophils % 73.8 %; Nucleated Red Blood Cells % 0 %; Platelet Count 190 10^3/cmm (157-399); Red Cell Distribution Width 13.5 % (12.1-15.1); White Blood Count 6.68 10^3/uL (3.29-11.43)
[2025-03-23 10:26] LABS: Alanine Aminotransferase 19 U/L (0-41); Albumin Level 4.1 g/dL (3.5-5.2); Alkaline Phosphatase 98 U/L (40-130); Aspartate Amino Transferase 25 U/L (0-40); Blood Urea Nitrogen 18 mg/dL (8-23); Calcium 9.7 mg/dL (8.5-10.5); Carbon Dioxide 27 mmol/L (22-29); Chloride 102 mmol/L (98-107); Globulin 3.1 g/dL (1.3-4.6); Glucose 77 mg/dL (65-115); Osmolality Calculated 293 mOsm/kg (285-295); Sodium 141 mmol/L (136-145); Thyroid Stimulating Hormone 1.13 uIU/mL (0.27-4.20); Total Bilirubin 0.5 mg/dL (0.15-1.2); Total Protein 7.2 g/dL (6.6-8.7)
[2025-03-23] MEDS: nivo-relat 12mg-4mg/mL 40 ML in sodium chloride 0.9% 250 ML 580 ML IV (11:36)
[2025-03-23 12:13] VITALS: BP 112/64; PULSE 66; RESP 18; TEMP 36.8; O2SAT 99
== END 2025-03-23 23:59 | disposition home or self-care (01) ==
PROVIDERS: PCP Family Medicine; Visit Provider Internal Medicine Medical Oncology
DX: Z51.11 Encounter for antineoplastic chemotherapy (principal); C61 Malignant neoplasm of prostate; C43.59 Malignant melanoma of other part of trunk; C79.51 Secondary malignant neoplasm of bone; C78.7 Secondary malignant neoplasm of liver and intrahepatic bile duct; C77.8 Secondary and unspecified malignant neoplasm of lymph nodes of multiple regions; C78.02 Secondary malignant neoplasm of left lung; Z79.899 Other long term (current) drug therapy; Z87.891 Personal history of nicotine dependence
CPT/HCPCS: 80053; 84443; 85025; 96413; 99213; A4222; J7050; J9298

== ENCOUNTER → 2025-03-26 08:31 | Outpatient (BNVA) | payer MEDICARE, SELFPAY | PROVIDERS: PCP Family Medicine; Visit Provider Podiatrist Foot & Ankle Surgery | DX: M21.622 Bunionette of left foot (principal); Q82.8 Other specified congenital malformations of skin | CPT/HCPCS: 99214 ==

== ENCOUNTER 2025-04-20 10:25 | Oncology outpatient (recurring) (ONCR) | payer MEDICARE, SELFPAY ==
[2025-04-20 10:55] LABS: Basophils # 0.1 10^3/uL (0.0-0.1); Basophils % 0.9 %; Eosinophils # 0.2 10^3/uL (0.0-0.8); Hematocrit 39.1 % (37-53); Lymphocytes % 15.2 %; Mean Corpuscular Hemoglobin 29.7 pg (27-33); Mean Corpuscular Volume 87.3 fl (82-101); Mean Platelet Volume 9.1 fL (7.4-10.4); Monocytes # 0.6 10^3/uL (0.2-0.9); Neutrophils # 4.59 10^3/uL (1.8-7.7); Neutrophils % 71.3 %; Nucleated Red Blood Cells % 0 %; Platelet Count 194 10^3/cmm (157-399); Red Blood Count 4.48 10^6/uL (3.85-5.65); Red Cell Distribution Width 13.1 % (12.1-15.1); White Blood Count 6.44 10^3/uL (3.29-11.43)
[2025-04-20 11:22] LABS: Alanine Aminotransferase 19 U/L (0-41); Albumin Level 4.2 g/dL (3.5-5.2); Alkaline Phosphatase 104 U/L (40-130); Anion Gap 14.9 (5-19); Aspartate Amino Transferase 25 U/L (0-40); Blood Urea Nitrogen 15 mg/dL (8-23); Calcium 10.1 mg/dL (8.5-10.5); Carbon Dioxide 26 mmol/L (22-29); Chloride 102 mmol/L (98-107); Globulin 3.2 g/dL (1.3-4.6); Glucose 75 mg/dL (65-115); Osmolality Calculated 288 mOsm/kg (285-295); Potassium 3.9 mmol/L (3.5-5.1); Sodium 139 mmol/L (136-145); Thyroid Stimulating Hormone 0.93 uIU/mL (0.27-4.20); Total Bilirubin 0.5 mg/dL (0.15-1.2); Total Protein 7.4 g/dL (6.6-8.7)
[2025-04-20] MEDS: nivo-relat 12mg-4mg/mL 40 ML in sodium chloride 0.9% 250 ML 580 ML IV (13:50)
[2025-04-20 14:30] VITALS: BP 107/67; PULSE 78; RESP 16; TEMP 36.4; O2SAT 94
== END 2025-04-20 23:59 | disposition home or self-care (01) ==
PROVIDERS: Nurse Practitioner Family; PCP Family Medicine; Visit Provider Internal Medicine Medical Oncology
DX: Z51.11 Encounter for antineoplastic chemotherapy (principal); C43.72 Malignant melanoma of left lower limb, including hip; C79.51 Secondary malignant neoplasm of bone; C78.7 Secondary malignant neoplasm of liver and intrahepatic bile duct; C77.8 Secondary and unspecified malignant neoplasm of lymph nodes of multiple regions; C61 Malignant neoplasm of prostate; C78.02 Secondary malignant neoplasm of left lung; Z87.891 Personal history of nicotine dependence; Z79.899 Other long term (current) drug therapy
CPT/HCPCS: 36415; 80053; 84443; 85025; 96413; 99213; A4222; J7050; J9298

== ENCOUNTER 2025-05-18 09:38 | Oncology outpatient (recurring) (ONCR) | payer MEDICARE, SELFPAY ==
[2025-05-18 10:19] LABS: Hematocrit 39.8 % (37-53); Hemoglobin 13.30 g/dL (11.27-16.99); Mean Corpuscular HGB Conc 33.4 g/dL (30-55); Mean Corpuscular Hemoglobin 29.7 pg (27-33); Mean Corpuscular Volume 88.8 fl (82-101); Nucleated Red Blood Cells % 0 %; Platelet Count 257 10^3/cmm (157-399); Red Blood Count 4.48 10^6/uL (3.85-5.65); White Blood Count 6.31 10^3/uL (3.29-11.43)
[2025-05-18 10:35] LABS: Alanine Aminotransferase 16 U/L (0-41); Albumin Level 4.1 g/dL (3.5-5.2); Alkaline Phosphatase 112 U/L (40-130); Anion Gap 15.3 (5-19); Aspartate Amino Transferase 21 U/L (0-40); Blood Urea Nitrogen 16 mg/dL (8-23); Calcium 9.6 mg/dL (8.5-10.5); Carbon Dioxide 27 mmol/L (22-29); Chloride 102 mmol/L (98-107); Creatinine Clr Calc Pharmacy 66.3158; Globulin 3.1 g/dL (1.3-4.6); Glucose 93 mg/dL (65-115); Osmolality Calculated 291 mOsm/kg (285-295); Potassium 4.3 mmol/L (3.5-5.1); Sodium 140 mmol/L (136-145); Thyroid Stimulating Hormone 1.03 uIU/mL (0.27-4.20); Total Protein 7.2 g/dL (6.6-8.7)
[2025-05-18] MEDS: nivo-relat 12mg-4mg/mL 40 ML in sodium chloride 0.9% 250 ML 580 ML IV (12:06)
[2025-05-18 12:50] VITALS: BP 107/67; PULSE 72; RESP 16; TEMP 36.8; O2SAT 94
== END 2025-05-18 23:59 | disposition home or self-care (01) ==
PROVIDERS: Nurse Practitioner Family; PCP Family Medicine; Visit Provider Internal Medicine Medical Oncology
DX: Z51.11 Encounter for antineoplastic chemotherapy (principal); C43.9 Malignant melanoma of skin, unspecified; C61 Malignant neoplasm of prostate; Z79.899 Other long term (current) drug therapy; Z87.891 Personal history of nicotine dependence
CPT/HCPCS: 80053; 84443; 85025; 96413; 99214; A4222; J7050; J9298

== ENCOUNTER 2025-06-15 10:00 | Oncology outpatient (recurring) (ONCR) | payer MEDICARE, SELFPAY ==
--- NOTE | 2025-06-12 09:00 | PETR_ITS ---
PROCEDURE INFORMATION: Exam: PET/CT Skull Base to Mid-thigh Exam date and time: 06/12/2025 9:59 AM Age: 84 years old Clinical indication: Restaging of metastatic melanoma. Primary tumor in the left upper inner thigh. LABS AND CLINICAL REPORTS: Glucose: 87 mg/dl Treatment strategy for malignancy (PET staging): Restaging (PS) TECHNIQUE: Imaging protocol: Following at least four-hour fasting and following the injection of radiopharmaceutical, low dose CT images were obtained. Then, PET images were obtained. Attenuation corrected images were constructed using the CT scan. Fused images of PET and CT were reviewed. The standardized uptake values (SUV) reported below are maximum values within a region of interest, expressed in gm/ml. Exam includes orbital meatal line to mid-thigh. SUV normalization method: BodyWeight Radiopharmaceutical: 11.33 mCi F-18 FDG (Fluorodeoxyglucose), IV. Time of imaging post radiopharmaceutical administration: 45 minutes Injection site: right hand COMPARISON: PT PET skull to thigh SUBS 02/13/2025 FINDINGS: Brain: On the nondedicated limited brain images there is no abnormal distribution of the radiotracer in the lopez and white matter. Pharynx: Normal distribution of the radiotracer in nasopharyngeal, and oropharyngeal structures. Larynx: Normal distribution of the radiotracer in laryngeal structures. Lungs, pleura and trachea: Right upper lobe nodule is relatively stable measuring 1.2 cm/1.9 SUV, previously 2.2 SUV. There is persistent mildly increased uptake up to 2.6 SUV within peripheral dependent reticular and ground-glass opacities in the lower lobes suggestive of benign inflammatory/fibrotic changes. There is stable severe paraseptal emphysema anteriorly in the left upper lobe, and moderate centrilobular emphysema in the upper lobes. 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 No pleural effusion. Heart: Normal physiologic uptake. There is no cardiomegaly. Coronary artery calcification is present. There is no pericardial effusion. Mediastinal space: See below in lymph nodes . Liver: Normal size without abnormal radiotracer uptake. Gallbladder and biliary ducts: No abnormal uptake. Pancreas: Normal distribution of radiotracer. Spleen: Normal size without abnormal radiotracer uptake. Adrenal glands: No abnormal uptake. No nodules. Kidneys and ureters: Normal physiologic uptake. No hydronephrosis. Punctate bilateral calcifications suggestive of tiny nonobstructive stones are more prominent on the current exam. Stomach and bowel: Intense uptake in the long segment of transverse colon and moderate uptake in the descending and sigmoid colon with no corresponding CT abnormality is benign. There is extensive diverticulosis of the sigmoid colon. Vasculature: Linear uptake extending from the injection site in the right hand toward the right subclavian region represents a benign finding of FDG lymphatic drainage. There is stable mildly increased venous uptake in bilateral subclavian veins and femoral, popliteal and infrapopliteal veins in the legs representing benign finding. No aortic aneurysm. Lymph nodes: New right common iliac lymph node (series 301, image 251) measures 1.4 x 1.2 cm/9.7 SUV suggestive of mindy metastasis. Persistent increased uptake up to 4.1 SUV (previously 5 SUV) within normal sized mediastinal and bilateral hilar lymph nodes is likely benign reactive in nature. No FDG avid lymphadenopathy in the head, neck, pelvis, and extremities. Skeleton: Focal uptake of 9.2 SUV in the subcortical location in the right humeral head previously measuring 8.1 SUV may be benign inflammatory in nature. There are 2 stable metallic anchors in the right humeral head. Soft tissues: Stable in size 0.7 x 0.3 cm subcutaneous nodule in the left gluteal area (series 301, image 275) decreased from 4.3 SUV to 3.7 SUV. About 1.3 x 0.4 cm lateral subcutaneous nodule in the left gluteal area (series 301, image 260) decreased from 8.8 SUV to 4.7 SUV. Small focus of increased uptake of 4.3 SUV within the midline gluteal fold (series 301, image 302 is more discrete in comparison with the prior exam when the linear uptake was present in this area measuring up to 3.2 SUV. METRICS: Mediastinal blood pool maximal uptake is 2.7 SUV. Liver maximal uptake is 3.2 SUV. PET/PET skull to thigh SUBS [id number] IMPRESSION: In comparison with 02/13/2025 there are some mixed changes with overall stability as follows: 1. There is new intensely FDG avid right common iliac lymph node measuring 9.7 SUV suspicious for new melanoma metastasis. 2. Two stable in size left gluteal soft tissue nodules decreased in uptake (from 8.8 SUV to 4.7 SUV). New small focus measuring 4.3 SUV within the midline gluteal fold is indeterminate. 3. Right upper lobe lung nodule maintain stable low-grade uptake (1.9 SUV, previously 2.2 SUV). 4. Stable presumably benign findings (increased uptake within normal sized mediastinal and bilateral hilar lymph nodes suggestive of benign reactive lymphadenopathy, increased uptake in dependent lung opacities in the lower lobes).
[2025-06-15 10:02] LABS: Hematocrit 41.7 % (37-53); Hemoglobin 14.10 g/dL (11.27-16.99); Mean Corpuscular HGB Conc 33.8 g/dL (30-55); Mean Corpuscular Hemoglobin 29.9 pg (27-33); Mean Corpuscular Volume 88.5 fl (82-101); Nucleated Red Blood Cells % 0 %; Platelet Count 183 10^3/cmm (157-399); Red Blood Count 4.71 10^6/uL (3.85-5.65); White Blood Count 6.59 10^3/uL (3.29-11.43)
[2025-06-15 10:29] LABS: Alanine Aminotransferase 19 U/L (0-41); Albumin Level 4.2 g/dL (3.5-5.2); Alkaline Phosphatase 114 U/L (40-130); Aspartate Amino Transferase 26 U/L (0-40); Blood Urea Nitrogen 14 mg/dL (8-23); Calcium 10.1 mg/dL (8.5-10.5); Carbon Dioxide 26 mmol/L (22-29); Chloride 102 mmol/L (98-107); Creatinine Clr Calc Pharmacy 66.4986; Globulin 3.1 g/dL (1.3-4.6); Glucose 81 mg/dL (65-115); Osmolality Calculated 290 mOsm/kg (285-295); Sodium 140 mmol/L (136-145); Thyroid Stimulating Hormone 1.15 uIU/mL (0.27-4.20); Total Protein 7.3 g/dL (6.6-8.7)
[2025-06-15 10:37] LABS: Anion Gap 16.6 (5-19); Potassium 4.6 mmol/L (3.5-5.1)
[2025-06-15] MEDS: nivo-relat 12mg-4mg/mL 40 ML in sodium chloride 0.9% 250 ML 580 ML IV (11:01)
[2025-06-15 11:54] VITALS: BP 133/72; PULSE 65; RESP 16; TEMP 35.9; O2SAT 99
== END 2025-06-15 23:59 | disposition home or self-care (01) ==
PROVIDERS: PCP Family Medicine; Visit Provider Internal Medicine Medical Oncology
DX: Z51.11 Encounter for antineoplastic chemotherapy; C43.9 Malignant melanoma of skin, unspecified; C61 Malignant neoplasm of prostate; R59.0 Localized enlarged lymph nodes; Z87.891 Personal history of nicotine dependence; Z79.899 Other long term (current) drug therapy; Z53.9 Procedure and treatment not carried out, unspecified reason
CPT/HCPCS: 78815; 80053; 84443; 85025; 96413; 99214; A4222; A9552; J7050; J9298

== ENCOUNTER → 2025-07-06 10:50 | Outpatient (BNVA) | payer MEDICARE, SELFPAY | PROVIDERS: PCP Family Medicine; Visit Provider Dermatology | DX: C79.89 Secondary malignant neoplasm of other specified sites (principal); L98.8 Other specified disorders of the skin and subcutaneous tissue; H02.105 Unspecified ectropion of left lower eyelid; L82.1 Other seborrheic keratosis; L21.8 Other seborrheic dermatitis; D22.0 Melanocytic nevi of lip; Z08 Encounter for follow-up examination after completed treatment for malignant neoplasm; Z85.828 Personal history of other malignant neoplasm of skin; L57.0 Actinic keratosis | CPT/HCPCS: 17000; 99214 ==

== ENCOUNTER 2025-07-13 08:13 | Oncology outpatient (recurring) (ONCR) | payer MEDICARE, SELFPAY ==
[2025-07-13 08:45] LABS: Hematocrit 40.5 % (37-53); Hemoglobin 13.50 g/dL (11.27-16.99); Mean Corpuscular HGB Conc 33.3 g/dL (30-55); Mean Corpuscular Hemoglobin 29.7 pg (27-33); Mean Corpuscular Volume 89.0 fl (82-101); Nucleated Red Blood Cells % 0 %; Platelet Count 197 10^3/cmm (157-399); Red Blood Count 4.55 10^6/uL (3.85-5.65); White Blood Count 6.25 10^3/uL (3.29-11.43)
[2025-07-13 09:11] LABS: Alanine Aminotransferase 20 U/L (0-41); Albumin Level 4.1 g/dL (3.5-5.2); Alkaline Phosphatase 106 U/L (40-130); Blood Urea Nitrogen 17 mg/dL (8-23); Calcium 9.8 mg/dL (8.5-10.5); Carbon Dioxide 26 mmol/L (22-29); Chloride 102 mmol/L (98-107); Creatinine Clr Calc Pharmacy 67.4689; Globulin 3.1 g/dL (1.3-4.6); Glucose 74 mg/dL (65-115); Osmolality Calculated 292 mOsm/kg (285-295); Sodium 141 mmol/L (136-145); Thyroid Stimulating Hormone 1.30 uIU/mL (0.27-4.20); Total Protein 7.2 g/dL (6.6-8.7)
[2025-07-13 09:40] LABS: Anion Gap 17.0 (5-19); Aspartate Amino Transferase 27 U/L (0-40); Potassium 4.0 mmol/L (3.5-5.1)
[2025-07-13] MEDS: nivo-relat 12mg-4mg/mL 40 ML in sodium chloride 0.9% 250 ML 580 ML IV (10:42)
[2025-07-13 11:25] VITALS: BP 130/73; PULSE 67; RESP 16; TEMP 35.8; O2SAT 94
== END 2025-07-13 23:59 | disposition home or self-care (01) ==
PROVIDERS: PCP Family Medicine; Visit Provider Internal Medicine Medical Oncology
DX: Z51.11 Encounter for antineoplastic chemotherapy (principal); C43.9 Malignant melanoma of skin, unspecified; C77.5 Secondary and unspecified malignant neoplasm of intrapelvic lymph nodes; C79.51 Secondary malignant neoplasm of bone; Z79.899 Other long term (current) drug therapy; Z87.891 Personal history of nicotine dependence; Z85.46 Personal history of malignant neoplasm of prostate
CPT/HCPCS: 80053; 84443; 85025; 96413; 99214; A4222; J7050; J9298

== ENCOUNTER 2025-08-10 07:49 | Oncology outpatient (recurring) (ONCR) | payer MEDICARE, SELFPAY ==
[2025-08-10 08:44] LABS: Hematocrit 42.7 % (37-53); Hemoglobin 14.20 g/dL (11.27-16.99); Mean Corpuscular HGB Conc 33.3 g/dL (30-55); Mean Corpuscular Hemoglobin 29.6 pg (27-33); Mean Corpuscular Volume 89.0 fl (82-101); Nucleated Red Blood Cells % 0 %; Platelet Count 206 10^3/cmm (157-399); Red Blood Count 4.80 10^6/uL (3.85-5.65); White Blood Count 5.35 10^3/uL (3.29-11.43)
[2025-08-10 10:22] LABS: Alanine Aminotransferase 18 U/L (0-41); Albumin Level 4.5 g/dL (3.5-5.2); Alkaline Phosphatase 116 U/L (40-130); Aspartate Amino Transferase 29 U/L (0-40); Blood Urea Nitrogen 19 mg/dL (8-23); Calcium 10.0 mg/dL (8.5-10.5); Carbon Dioxide 26 mmol/L (22-29); Chloride 100 mmol/L (98-107); Creatinine Clr Calc Pharmacy 67.4121; Globulin 3.1 g/dL (1.3-4.6); Glucose 77 mg/dL (65-115); Osmolality Calculated 287 mOsm/kg (285-295); Sodium 138 mmol/L (136-145); Thyroid Stimulating Hormone 0.88 uIU/mL (0.27-4.20); Total Protein 7.6 g/dL (6.6-8.7)
[2025-08-10 10:23] LABS: Anion Gap 16.0 (5-19); Potassium 4.0 mmol/L (3.5-5.1)
[2025-08-10] MEDS: nivo-relat 12mg-4mg/mL 40 ML in sodium chloride 0.9% 250 ML 580 ML IV (11:11)
[2025-08-10 12:16] VITALS: BP 130/73; PULSE 66; RESP 17; TEMP 36.1; O2SAT 96
== END 2025-08-10 23:59 | disposition home or self-care (01) ==
PROVIDERS: Nurse Practitioner Family; PCP Family Medicine; Visit Provider Internal Medicine Medical Oncology
DX: Z51.11 Encounter for antineoplastic chemotherapy (principal); C79.2 Secondary malignant neoplasm of skin; Z85.46 Personal history of malignant neoplasm of prostate; C79.51 Secondary malignant neoplasm of bone; C78.7 Secondary malignant neoplasm of liver and intrahepatic bile duct; C77.8 Secondary and unspecified malignant neoplasm of lymph nodes of multiple regions; Z87.891 Personal history of nicotine dependence; Z79.899 Other long term (current) drug therapy
CPT/HCPCS: 80053; 84443; 85025; 96413; 99214; A4222; J7050; J9298

== ENCOUNTER → 2025-08-18 11:33 | Outpatient (BNVA) | payer MEDICARE, SELFPAY | PROVIDERS: PCP Family Medicine; Visit Provider Dermatology | DX: L30.4 Erythema intertrigo (principal); L89.319 Pressure ulcer of right buttock, unspecified stage | CPT/HCPCS: 99214 ==

== ENCOUNTER 2025-09-07 09:21 | Oncology outpatient (recurring) (ONCR) | payer MEDICARE, SELFPAY ==
[2025-09-07 10:16] LABS: Hematocrit 36.5 % (37-53); Hemoglobin 11.80 g/dL (11.27-16.99); Mean Corpuscular HGB Conc 32.3 g/dL (30-55); Mean Corpuscular Hemoglobin 29.6 pg (27-33); Mean Corpuscular Volume 91.7 fl (82-101); Nucleated Red Blood Cells % 0 %; Platelet Count 157 10^3/cmm (157-399); Red Blood Count 3.98 10^6/uL (3.85-5.65); White Blood Count 5.18 10^3/uL (3.29-11.43)
[2025-09-07 10:45] LABS: Alanine Aminotransferase 19 U/L (0-41); Albumin Level 4.1 g/dL (3.5-5.2); Alkaline Phosphatase 110 U/L (40-130); Blood Urea Nitrogen 19 mg/dL (8-23); Calcium 9.3 mg/dL (8.5-10.5); Carbon Dioxide 26 mmol/L (22-29); Chloride 103 mmol/L (98-107); Globulin 2.8 g/dL (1.3-4.6); Glucose 77 mg/dL (65-115); Osmolality Calculated 291 mOsm/kg (285-295); Sodium 140 mmol/L (136-145); Thyroid Stimulating Hormone 1.05 uIU/mL (0.27-4.20); Total Protein 6.9 g/dL (6.6-8.7)
[2025-09-07 10:51] LABS: Anion Gap 15.1 (5-19); Aspartate Amino Transferase 30 U/L (0-40); Potassium 4.1 mmol/L (3.5-5.1)
[2025-09-07] MEDS: nivo-relat 12mg-4mg/mL 40 ML in sodium chloride 0.9% 250 ML 580 ML IV (11:36)
[2025-09-07 12:16] VITALS: BP 125/72; PULSE 72; RESP 16; TEMP 36.1; O2SAT 100
== END 2025-09-07 23:59 | disposition home or self-care (01) ==
PROVIDERS: Nurse Practitioner; PCP Family Medicine; Visit Provider Internal Medicine Medical Oncology
DX: Z53.9 Procedure and treatment not carried out, unspecified reason; Z51.11 Encounter for antineoplastic chemotherapy; C43.9 Malignant melanoma of skin, unspecified; C61 Malignant neoplasm of prostate; C79.51 Secondary malignant neoplasm of bone; C78.00 Secondary malignant neoplasm of unspecified lung; C78.7 Secondary malignant neoplasm of liver and intrahepatic bile duct; Z79.899 Other long term (current) drug therapy; Z87.891 Personal history of nicotine dependence
CPT/HCPCS: 36415; 80053; 84443; 85025; 96413; 99214; A4222; J7050; J9298

== ENCOUNTER 2025-10-05 08:30 | Oncology outpatient (recurring) (ONCR) | payer MEDICARE, SELFPAY ==
--- NOTE | 2025-09-25 09:26 | PETR_ITS ---
PROCEDURE INFORMATION: Exam: PET/CT Skull Base to Mid-thigh Exam date and time: 09/25/2025 10:50 AM Age: 84 years old Clinical indication: Restaging of metastatic melanoma. Primary tumor in the left upper inner thigh. LABS AND CLINICAL REPORTS: Glucose: 97 mg/dl Treatment strategy for malignancy (PET staging): Restaging (PS) TECHNIQUE: Imaging protocol: Following at least four-hour fasting and following the injection of radiopharmaceutical, low dose CT images were obtained. Then, PET images were obtained. Attenuation corrected images were constructed using the CT scan. Fused images of PET and CT were reviewed. The standardized uptake values (SUV) reported below are maximum values within a region of interest, expressed in gm/ml. Exam includes orbital meatal line to mid-thigh. SUV normalization method: BodyWeight Radiopharmaceutical: 11.51 mCi F-18 FDG (Fluorodeoxyglucose), IV. Time of imaging post radiopharmaceutical administration: 46 minutes Injection site: left ac COMPARISON: PT PET skull to thigh SUBS [id number] 06/12/2025 and 02/24/2023 FINDINGS: Brain: No abnormal uptake. Pharynx: Normal distribution of the radiotracer in nasopharyngeal, and oropharyngeal structures. Larynx: Normal distribution of the radiotracer in laryngeal structures. Lungs, pleura and trachea: 1.1 cm right upper lobe nodule on axial image 117 is stable in size since 02/24/2023 with low-grade uptake of 1.8 SUV, previously 1.9 SUV on 06/12/2025 and 0.9 SUV on 02/24/2023 likely representing benign finding. There is stable paraseptal emphysema most prominent in the left upper lobe. There are stable non FDG avid partially calcified pleural plaques suggestive of prior exposure to asbestos. There is no pleural effusion. Heart: Normal physiologic uptake. Stable mild cardiomegaly. Coronary artery calcification is present. There is no pericardial effusion. Mediastinal space: No abnormal uptake. Liver: Normal size with stable calcified granulomas without abnormal radiotracer uptake. Gallbladder and biliary ducts: No abnormal uptake. Pancreas: Normal distribution of radiotracer. Spleen: Normal size without abnormal radiotracer uptake. Adrenal glands: No abnormal uptake. No nodules. Kidneys and ureters: Normal physiologic uptake. No hydronephrosis. Stomach and bowel: No abnormal uptake. No abnormal dilatation of the bowel. Stable diverticulosis of the sigmoid colon. Urinary bladder: The bladder is moderately distended (15.7 x 8 x 9 cm with estimated volume of 565 mL) with diluted excreted FDG with maximal uptake of 7.9 SUV with no abnormal wall thickening. Reproductive: No abnormal uptake. The prostate is mildly enlarged with central calcifications. Vasculature: No abnormal uptake. No aortic aneurysm. Lymph nodes: There is new small periportal FDG avid lymph node on axial image 178 measuring 1.3 x 1 cm/6 SUV. Right common iliac FDG-avid lymph node (axial image 241) decreased from 1.3 cm/9.7 SUV to 1.1cm/5.8 SUV. There is persistent abnormal increased uptake within normal sized mediastinal and bilateral hilar lymph nodes that can be malignant or benign. Pretracheal lymph node on axial image 126 measures 8 SUV, previously 4.1 SUV. Hilar lymph nodes uptake is stable on the right side (4.9 SUV), and slightly increased on the left side (from 4.3 cm to 5.6 SUV). There is stable sequela of exposure to granulomatous disease with calcified granulomas in normal-size right subcarinal and right hilar lymph nodes. Skeleton: There is persistent subcentimeter subcortical focus of intense uptake anteriorly in the right humeral head measuring 10.3 SUV, previously 9.2 SUV. There are stable screws within the right humeral head suggestive of prior rotator cuff repair surgery. New increased uptake of 7 SUV within the fracture in the costochondral junction of the right 5th rib is compatible with benign posttraumatic finding. Soft tissues: Two left gluteal cutaneous and subcutaneous nodules suspicious for metastasis currently measure 6.1 SUV and 1.4 SUV (axial images 256 and 270) versus 3.7 SUV and 4.7 SUV respectively on the prior exam. Focus of increased uptake in the midline gluteal fold documented on the prior exam is not appreciated on the current study. METRICS: Mediastinal blood pool: Max SUV of 2.4, mean SUV of 2.1 Liver uptake: Max SUV of 3, mean SUV of 2.5 PET/PET skull to thigh SUBS [id number] IMPRESSION: The findings are overall stable in comparison with the prior exam on 06/12/2025 as follows: 1. Previously present right common iliac lymph node decreased in uptake from 9.7 SUV 5.8 SUV; new periportal FDG avid lymph node with increased uptake of 6 SUV. 2. Small cutaneous and subcutaneous left gluteal nodules currently measure up to 6.1 SUV, previously 4.7 SUV. 3. Persistent increased uptake within normal sized mediastinal and bilateral hilar lymph nodes that may be malignant or benign reactive in nature. 1.1 cm right upper lobe lung nodule stable in size since 2022 with stable low-grade uptake (1.8 SUV) is suggestive of benign or nonaggressive lesion unrelated to metastatic melanoma. Persistent small focus of intense uptake in the right humeral head is likely benign. There is new benign posttraumatic fracture in the costochondral junction on the right 5th rib with increase uptake of 7 SUV suggestive of subacute nature. There is new dilution of FDG within moderately distended bladder suggestive of significant residual post voiding. No hydronephrosis or hydroureter.
[2025-10-05 08:25] LABS: Hematocrit 40.0 % (37-53); Hemoglobin 13.30 g/dL (11.27-16.99); Mean Corpuscular HGB Conc 33.3 g/dL (30-55); Mean Corpuscular Hemoglobin 29.6 pg (27-33); Mean Corpuscular Volume 89.1 fl (82-101); Nucleated Red Blood Cells % 0 %; Platelet Count 185 10^3/cmm (157-399); Red Blood Count 4.49 10^6/uL (3.85-5.65); White Blood Count 6.08 10^3/uL (3.29-11.43)
[2025-10-05 09:06] LABS: Alanine Aminotransferase 16 U/L (0-41); Albumin Level 4.2 g/dL (3.5-5.2); Alkaline Phosphatase 114 U/L (40-130); Anion Gap 11.9 (5-19); Aspartate Amino Transferase 24 U/L (0-40); Blood Urea Nitrogen 16 mg/dL (8-23); Calcium 9.6 mg/dL (8.5-10.5); Carbon Dioxide 29 mmol/L (22-29); Chloride 103 mmol/L (98-107); Globulin 2.7 g/dL (1.3-4.6); Glucose 80 mg/dL (65-115); Osmolality Calculated 290 mOsm/kg (285-295); Potassium 3.9 mmol/L (3.5-5.1); Sodium 140 mmol/L (136-145); Thyroid Stimulating Hormone 1.04 uIU/mL (0.27-4.20); Total Protein 6.9 g/dL (6.6-8.7)
[2025-10-05] MEDS: nivo-relat 12mg-4mg/mL 40 ML in sodium chloride 0.9% 250 ML 580 ML IV (10:04)
[2025-10-05 10:41] VITALS: BP 120/70; PULSE 62; RESP 18; TEMP 36.6; O2SAT 99
== END 2025-10-05 23:59 | disposition home or self-care (01) ==
PROVIDERS: PCP Family Medicine; Visit Provider Internal Medicine Medical Oncology
DX: Z51.11 Encounter for antineoplastic chemotherapy; C43.9 Malignant melanoma of skin, unspecified; C61 Malignant neoplasm of prostate; C78.00 Secondary malignant neoplasm of unspecified lung; C78.7 Secondary malignant neoplasm of liver and intrahepatic bile duct; C79.51 Secondary malignant neoplasm of bone; R59.0 Localized enlarged lymph nodes; Z87.891 Personal history of nicotine dependence; Z79.899 Other long term (current) drug therapy; Z53.9 Procedure and treatment not carried out, unspecified reason
CPT/HCPCS: 78815; 80053; 84443; 85025; 96413; 99214; A4222; A9552; J7050; J9298